=== PATIENT | female | born 1980 | race Caucasian/White ===

== ENCOUNTER 2017-08-30 08:40 | Inpatient (IN) | payer BC, OTHER ==
[2017-08-30 09:03] VITALS: BMI 39.1
--- NOTE | 2017-08-30 09:21 | PDOC ---
Attending Attestation - HPI HPI: 08/30/17 10:27 The patient is a 36 year old female with a significant PMH of melanoma (s/p excision), gastric bypass, and past seizures who presents to the emergency department with right ankle pain s/p syncopal episode earlier this morning. The patient reports brushing her teeth and passing out, and woke up a few seconds later with right ankle pain and deformity. She denies presyncopal lightheadedness or palpitations. She denies numbness, tingling, or weakness. The patient reports a history of LOC and was evaluated here on 02/2016 for a similar episode. Allergies: NKA PCP: None reported. <Javier Chowdhury - Last Filed: 08/30/17 10:27> - Resident Resident Name: Ludwig Danielson - ED Attending Attestation I have performed the following: I have examined & evaluated the patient, The case was reviewed & discussed with the resident, I agree w/resident's findings & plan, Exceptions are as noted - Physicial Exam PE: GENERAL: Awake, alert, and fully oriented. In obvious pain. HEAD: No signs of trauma EYES: PERRLA, EOMI, sclera anicteric, conjunctiva clear ENT: Auricles normal inspection, hearing grossly normal, nares patent, oropharynx clear without exudates. Moist mucosa NECK: Normal ROM, supple, no lymphadenopathy, JVD, or masses LUNGS: Breath sounds equal, clear to auscultation bilaterally. No wheezes, and no crackles HEART: Regular rate and rhythm, normal S1 and S2, no murmurs, rubs or gallops ABDOMEN: Soft, nontender, normoactive bowel sounds. No guarding, no rebound. No masses EXTREMITIES: +Deformity to R ankle. +Distal pulses. Remainder of extremities with normal range of motion, no edema. No clubbing or cyanosis. No cords, erythema, or tenderness NEUROLOGICAL: Cranial nerves II through XII grossly intact. Normal speech. Motor and sensation intact. Unable to ambulate due to ankle injury. SKIN: Warm, Dry, normal turgor, no rashes or lesions noted. - Medical Decision Making Pt with tib/fib fx. Will consult ortho. Will require admission for syncope as well as pain control. <Peyton Ruffin - Last Filed: 09/02/17 12:53>
[2017-08-30] MEDS ORDERED: morphine CARPU-JECT 4 MG/1 ML DISP.SYRIN IVPUSH ONE ×2 (09:25→10:36)
[2017-08-30] MEDS ORDERED: MORPHINE SULFATE 10 MG/1 ML *VIAL ONE ×2 (09:38→10:45)
[2017-08-30 09:44] LABS: BASO % 0.5 % (0-2.0); EOS % 1.8 % (0-4.5); HEMATOCRIT 38.9 % (32.4-45.2); HEMOGLOBIN 12.6 GM/dL (10.7-15.3); LYMPH % 14.7 % (8-40); MCH 26.1 pg (25.7-33.7); MCHC 32.3 g/dl (32.0-36.0); MEAN CELL VOLUME 80.7 fl (80-96); MEAN PLT VOLUME 7.1 fl (7.5-11.1); MONO % 6.4 % (3.8-10.2); NEUT % 76.6 % (42.8-82.8); PLATELET COUNT 324 K/MM3 (134-434); RBC 4.83 M/mm3 (3.60-5.2); RDW 15.4 % (11.6-15.6); WHITE BLOOD COUNT 7.3 K/mm3 (4.0-10.0)
--- NOTE | 2017-08-30 10:06 | PDOC ---
History of Present Illness - General Chief Complaint: Syncope/Near Syncope Stated Complaint: INJURY Time Seen by Provider: 08/30/17 09:08 History Source: Patient Exam Limitations: No Limitations - History of Present Illness Initial Comments: 08/30/17 09:57 The patient is a 36F with a PMH of melanoma (s/p excision), possible seizures, and syncope who presents after a syncopal episode. The patient states that she was feeling her normal self and going about her normal routine this morning when she syncopized while brushing her teeth. This was unwitnessed. She felt disoriented when she woke up, but denies any tongue biting, bladder/bowel incontinence, lightheadedness, CP, SOB, numbness, tingling, or weakness before , during, or after this episode. She says that she woke up and felt pain in her ankle. She currently is only complaining of pain in her ankle. Past History - Past Medical History Allergies/Adverse Reactions: Allergies Allergy/AdvReac Type Severity Reaction Status Date / Time No Known Allergies Allergy Verified 08/30/17 09:03 Home Medications: Ambulatory Orders NK [No Known Home Medication] 08/30/17 Cancer: (melanoma) COPD: No - Surgical History Abdominal Surgery: Yes (sleeve) - Immunization History Immunization Up to Date: Yes - Suicide/Smoking/Psychosocial Hx Smoking History: Never smoked Have you smoked in the past 12 months: No Number of Cigarettes Smoked Daily: 0 If you are a former smoker, when did you quit?: smokes hookah daily Cigars Per Day: 0 Information on smoking cessation initiated: No 'Breaking Loose' booklet given: 02/27/16 Hx Alcohol Use: No Drug/Substance Use Hx: No Substance Use Type: Alcohol Hx Substance Use Treatment: No *Physical Exam - Vital Signs Last Vital Signs Temp Pulse Resp BP Pulse Ox 99.0 F 80 18 98/70 100 08/30/17 08:49 08/30/17 08:49 08/30/17 08:49 08/30/17 08:49 08/30/17 08:49 Procedures - Splinting Splint Location: Right: Ankle Pre-Proc Neuro Vasc Exam: normal Hand-Made Type: orthoglass Splint Type: Yes: Posterior, Short Leg Kana Bandage: 4" Sling: No Complications: No Post splint xray: No ED Treatment Course - LABORATORY CBC & Chemistry Diagram: 08/30/17 09:32 08/30/17 09:32 - RADIOLOGY Radiology Studies Ordered: Category Date Time Status ANKLE & FOOT-RIGHT* [RAD] Stat Radiology 08/30/17 09:07 Ordered - Medications Given in the ED: ED Medications Discontinued Medications Generic Name Dose Route Start Last Admin Trade Name Ariana PRN Reason Stop Dose Admin Morphine Sulfate 4 mg 08/30/17 09:25 08/30/17 09:40 Morphine Injection - IVPUSH 08/30/17 09:26 4 mg ONCE ONE Administration Oxycodone/Acetaminophen 1 combo 08/30/17 09:09 08/30/17 09:10 Percocet 5/325 - PO 08/30/17 09:10 1 combo ONCE ONE Administration Medical Decision Making - Medical Decision Making 08/30/17 12:11 The patient is a 36F with a PMH of melanoma (s/p excision), possible seizures, and syncope, who presents to the ER after a syncopal episode causing a distal tib/fib fx. Hospitalist microblogged and I have endorsed the patient to Brook NICOLE, hospitalist. 08/30/17 14:04 Pt ankle is splinted and requiring dilaudid for comfort. *DC/Admit/Observation/Transfer Diagnosis at time of Disposition: Syncope Qualifiers: Syncope type: unspecified Qualified Code(s): R55 - Syncope and collapse - Discharge Dispostion Disposition: HOME Condition at time of disposition: Stable Admit: Yes - Referrals - Patient Instructions - Post Discharge Activity
[2017-08-30] MEDS ORDERED: SODIUM CHLORIDE 0.9% 1000 ML INFUS.BAG IV ONE (10:13)
[2017-08-30 10:23] LABS: ALBUMIN 3.7 g/dl (3.4-5.0); ANION GAP 9 (8-16); BILIRUBIN,TOTAL 0.2 mg/dL (0.2-1.0); BLOOD UREA NITROGEN 9 mg/dL (7-18); CALCIUM 8.4 mg/dL (8.5-10.1); CHLORIDE 106 mmol/L (98-107); CO2 24 mmol/L (21-32); CREATININE 0.7 mg/dL (0.55-1.02); GLUCOSE,RANDOM 109 mg/dL (74-106); POTASSIUM 4.4 mmol/L (3.5-5.1); SGOT/AST 12 U/L (15-37); SGPT/ALT 21 U/L (12-78); SODIUM 139 mmol/L (136-145); TOT PROT 7.3 g/dl (6.4-8.2)
[2017-08-30 10:26] LABS: ALK PHOS 38 U/L (45-117)
[2017-08-30] MEDS ORDERED: ONDANSETRON 4 MG/2 ML VIAL IVPUSH ONE (10:36)
[2017-08-30] MEDS ORDERED: ONDANSETRON 4 MG/2 ML VIAL ONE (10:45)
--- NOTE | 2017-08-30 11:24 | CON.CARD ---
Consult Consult Specialty:: Cardiology Referred by:: Dr. Ed Oneill Reason for Consultation:: Preop evaluation for ankle fracture - History of Present Illness Chief Complaint: Possible syncope vs seizure leading to ankle fracture History of Present Illness: 36F with PMH melanoma, gastric bypass, , mulitple prior surgeries for melanoma (now CHRIST > 5 years) sustained ankle fx after fall at home. Denies prior CP, SOB, palps. Similar episode 2 years ago for which a complete cardiac evaluation was performed and was unremarkable. She was seen and examined in the ER today; she denies CP, SOB, palps, no edema. 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: 02/03/16 Heme/Onc: Yes: Other (Melanoma) - Past Surgical History Past Surgical History: Yes: Appendectomy, Bariatric Surgery (Multiple prior melanoma surgeries) - Alcohol/Substance Use Hx Alcohol Use: No - Smoking History Smoking history: Never smoked Have you smoked in the past 12 months: No Aproximately how many cigarettes per day: 0 If you are a former smoker, when did you quit?: smokes hookah daily - Social History Usual Living Arrangement: Alone 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 Travel: No Home Medications - Allergies Allergies/Adverse Reactions: Allergies Allergy/AdvReac Type Severity Reaction Status Date / Time No Known Allergies Allergy Verified 08/30/17 09:03 - Home Medications Home Medications: Ambulatory Orders NK [No Known Home Medication] 08/30/17 Home Medications (free text): SENSITIVE TO LYRICA Family Disease History - Family Disease History Family History: Unremarkable (not pertinent to this presentation) Review of Systems - Review of Systems Constitutional: reports: No Symptoms Eyes: reports: No Symptoms HENT: reports: No Symptoms Neck: reports: No Symptoms Cardiovascular: reports: No Symptoms Respiratory: reports: No Symptoms Gastrointestinal: reports: No Symptoms Genitourinary: reports: No Symptoms Breasts: reports: No Symptoms Reported Musculoskeletal: reports: No Symptoms Integumentary: reports: No Symptoms Neurological: reports: No Symptoms Endocrine: reports: No Symptoms Hematology/Lymphatic: reports: No Symptoms Vital Signs: Vital Signs Temperature 99.0 F 08/30/17 08:49 Pulse Rate 80 08/30/17 08:49 Respiratory Rate 18 08/30/17 08:49 Blood Pressure 98/70 08/30/17 08:49 O2 Sat by Pulse Oximetry (%) 100 08/30/17 08:49 Constitutional: Yes: No Distress, Calm Eyes: Yes: Conjunctiva Clear, EOM Intact HENT: Yes: Atraumatic, Normocephalic Neck: Yes: Supple, Trachea Midline Respiratory: Yes: CTA Bilaterally Gastrointestinal: Yes: Soft JVD: No Carotid Bruit: No PMI: Non-Displaced Heart Sounds: Yes: S1, S2 (RRR) Edema: No Peripheral Pulses WNL: Yes Neurological: Yes: Alert, Oriented ...Motor Strength: WNL - Other Data Labs, Other Data: CBC, BMP 08/30/17 09:32 08/30/17 09:32 Troponin, BNP 08/30/17 09:32 Troponin I < 0.02 Troponin, BNP 08/30/17 09:32 Troponin I < 0.02 Ejection Fraction %: LVEF > or = 40 % Imaging - Results EKG: Pending Problem List - Problems (1) Closed right ankle fracture Code(s): S82.891A - OTH FRACTURE OF RIGHT LOWER LEG, INIT FOR CLOS FX (2) History of melanoma Code(s): Z85.820 - PERSONAL HISTORY OF MALIGNANT MELANOMA OF SKIN (3) Seizure Code(s): R56.9 - UNSPECIFIED CONVULSIONS (4) Syncope Code(s): R55 - SYNCOPE AND COLLAPSE Assessment/Plan IMP: Fall: syncope vs seizure Right ankle fracture REC: There are no cardiac contraindications to ortho surgery: she is in NSR, euvolemic with no sig valve disease. LV function is normal. Prior extensive cardiac evaluation for similar presentation 2016 including an extended holter proved unremarkable. A baseline ECG has been requested, but should not delay surgery. Please call if any further questions.
--- NOTE | 2017-08-30 12:13 | HP ---
Admitting History and Physical - Admission Chief Complaint: syncope, s/p fall, s/p ankle fx History of Present Illness: HPI 36 year old female with PMH melanoma multiple prior surgeries for melanoma including R leg skin graft and lymphnode removal (now CHRIST > 5 years, has not had a scan in last 2 years) gastric bypass, , admitted after syncopal episode resulting in right ankle fx after fall at home. Pt states she awoke up in her usual state of health, showered and after shower while brushing teeth became dizzy, held on to sink and next thing she woke up to the sound of water running. She felt pain to her R ankle right away, called her family who called EMS. Pt denies sob, cp, abd pain, n/v, fever, chills, ROY, blurry vision. She denies an aura, palpitations, or feelings of warmth prior to episode. 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 ...LMP: 02/03/16 Heme/Onc: Yes: Other (Melanoma) - Past Surgical History Past Surgical History: Yes: Appendectomy, Bariatric Surgery (Multiple prior melanoma surgeries) - Smoking History Smoking history: Never smoked Have you smoked in the past 12 months: No Aproximately how many cigarettes per day: 0 If you are a former smoker, when did you quit?: smokes hookah daily - Alcohol/Substance Use Hx Alcohol Use: No History of Substance Use: reports: None - Social History Usual Living Arrangement: Yes: With Child ADL: Independent 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[place] 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 Travel: No Home Medications - Allergies Allergies/Adverse Reactions: Allergies Allergy/AdvReac Type Severity Reaction Status Date / Time No Known Allergies Allergy Verified 08/30/17 09:03 - Home Medications Home Medications: Ambulatory Orders NK [No Known Home Medication] 08/30/17 Review of Systems - Review of Systems Constitutional: reports: No Symptoms Eyes: reports: No Symptoms HENT: reports: No Symptoms Neck: reports: No Symptoms Cardiovascular: reports: No Symptoms Respiratory: reports: No Symptoms Gastrointestinal: reports: No Symptoms Genitourinary: reports: No Symptoms Musculoskeletal: reports: No Symptoms Integumentary: reports: No Symptoms Neurological: reports: Change in LOC, Dizziness, Syncope Endocrine: reports: No Symptoms Hematology/Lymphatic: reports: No Symptoms Psychiatric: reports: No Symptoms Physical Examination Vital Signs: Vital Signs Temperature 99.0 F 08/30/17 08:49 Pulse Rate 80 08/30/17 08:49 Respiratory Rate 18 08/30/17 08:49 Blood Pressure 98/70 08/30/17 08:49 O2 Sat by Pulse Oximetry (%) 100 08/30/17 08:49 Constitutional: Yes: Calm Eyes: Yes: Conjunctiva Clear HENT: Yes: Other (dry mm) Cardiovascular: Yes: Regular Rate and Rhythm, S1, S2 Respiratory: Yes: Regular, CTA Bilaterally Gastrointestinal: Yes: Normal Bowel Sounds, Soft Renal/: Yes: WNL Musculoskeletal: Yes: WNL Extremities: Yes: External Rotation (R ankle, + tenderness, + swelling) Edema: No Peripheral Pulses WNL: Yes Integumentary: Yes: Other (vitiligo) Neurological: Yes: Alert, Oriented, Cran Nerves II-XII Intact Labs: CBC, BMP 08/30/17 09:32 08/30/17 09:32 Imaging - Results X-ray: Report Reviewed (R distal tib fib fx) Problem List - Problems (1) Closed right ankle fracture Code(s): S82.891A - OTH FRACTURE OF RIGHT LOWER LEG, INIT FOR CLOS FX (2) History of melanoma Code(s): Z85.820 - PERSONAL HISTORY OF MALIGNANT MELANOMA OF SKIN (3) Syncope Code(s): R55 - SYNCOPE AND COLLAPSE Qualifiers: Syncope type: unspecified Qualified Code(s): R55 - Syncope and collapse (4) Vitiligo Code(s): L80 - VITILIGO Assessment/Plan Assessment: 36 year old female with hx of melanoma, ?seizures admitted s/p syncope resulting in ankle fracture Plan: 1. Distal Tib/fib fracture, R ankle - Place splint - Elevate leg - Pain control - Ortho to see, no surgery today 2. Syncope vs seizure - Admit to tele - Cardiology work up including holter in 2016 proved unremarkable - ECHO per records show nml LV fxn - Obtain EKG - No cardiac contraindications for surgery - Appreciate cardiology - Neurology consulted 3. DVT - Lovenox sq Visit type - Emergency Visit Emergency Visit: Yes Care time: The patient presented to the Emergency Department on the above date and was hospitalized for further evaluation of their emergent condition. - New Patient This patient is new to me today: Yes Date on this admission: 08/30/17 - Critical Care Critical Care patient: No
[2017-08-30] MEDS ORDERED: MORPHINE SULFATE 10 MG/1 ML *VIAL IVPUSH PRN (12:39)
[2017-08-30] MEDS ORDERED: ONDANSETRON 4 MG/2 ML VIAL IVPUSH PRN (12:42)
[2017-08-30] MEDS ORDERED: SODIUM CHLORIDE 1,000 ML IV SCH (12:45)
[2017-08-30] MEDS ORDERED: HYDROmorphone HCL CARPU-JECT 1 MG/1 ML DISP.SYRIN IVPUSH ONE ×2 (13:25→17:45)
[2017-08-30] MEDS ORDERED: HYDROmorphone HCL CARPU-JECT 1 MG/1 ML DISP.SYRIN ONE (13:30)
--- NOTE | 2017-08-30 13:47 | CON.ORTH ---
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: No Home Medications - Allergies Allergies/Adverse Reactions: Allergies Allergy/AdvReac Type Severity Reaction Status Date / Time No Known Allergies Allergy Verified 08/30/17 09:03 - Home Medications Home Medications: Ambulatory Orders NK [No Known Home Medication] 08/30/17 Physical Exam for Ortho Vital Signs: Vital Signs Temperature 99.0 F 08/30/17 08:49 Pulse Rate 80 08/30/17 08:49 Respiratory Rate 18 08/30/17 08:49 Blood Pressure 98/70 08/30/17 08:49 O2 Sat by Pulse Oximetry (%) 100 08/30/17 08:49 Labs: CBC, BMP 08/30/17 09:32 08/30/17 09:32 - Lower Extremity Ankle: Yes: Right, Assymetrical, Deformity, Erythema, Limited ROM, Pain, Swelling, Tenderness, Other (nvi) Imaging - Results X-ray: Report Reviewed, Image Reviewed Assessment/Plan 36 year old female with PMH melanoma multiple prior surgeries for melanoma including R leg skin graft and lymphnode removal (now CHRIST > 5 years, has not had a scan in last 2 years) gastric bypass, , admitted after syncopal episode resulting in right ankle fx after fall at home. Pt states she awoke up in her usual state of health, showered and after shower while brushing teeth became dizzy, held on to sink and next thing she woke up to the sound of water running. She felt pain to her R ankle right away, called her family who called EMS. Pt denies sob, cp, abd pain, n/v, fever, chills, ROY, blurry vision. She denies an aura, palpitations, or feelings of warmth prior to episode. a/p right distal tibia and distal fibula fx- displaced Risks and benefits were d/w pt in detail Will need right ankle ORIF Surgical clearance Strict elevation Surgery tentatively for Saturday afternoon pending clearance NPO after midnight on Saturday d/w Dr. Aguillon
[2017-08-30] MEDS ORDERED: diphenhydrAMINE HCL 25 MG CAPSULE (FP) PO ONE (17:45)
[2017-08-30] MEDS: oxyCODONE HCL 5 MG TABLET PO PRN ×2 (17:48→21:31)
--- NOTE | 2017-08-30 17:48 | CON.NEURO ---
Consult - History of Present Illness History of Present Illness: 36 year old female with PMH melanoma multiple prior surgeries for melanoma including R leg skin graft and lymphnode removal (now CHRIST > 5 years, has not had a scan in last 2 years) gastric bypass, , admitted after syncopal episode resulting in right ankle fx after fall at home. Pt states she awoke up in her usual state of health, showered and after shower while brushing teeth became dizzy, held on to sink and next thing she woke up to the sound of water running. She felt pain to her R ankle right away, called her family who called EMS. Pt denies sob, cp, abd pain, n/v, fever, chills, ROY, blurry vision. She denies an aura, palpitations, or feelings of warmth prior to episode. denies tongue biting, incontinence. No ROY, no focal c/o beyond right foot / ankle pain . No HX of seizures, one drink last night, +menstruation CT HD : EXAM#: TYPE/EXAM: RESULT: [id number] CT/HEAD CT WITH AND W/O CONTRAST Status post syncope. Possible metastasis. History of melanoma CT scan of the brain without and following intravenous contrast Compared to prior CT scan of the head dated 02/27/2016 and prior MRI of the brain dated 02/28/2016 The ventricles and basal cisterns appear unremarkable. No mass lesion, gross acute infarct, intracranial hemorrhage or intraparenchymal edema are present. No gross abnormal intracranial enhancement is identified. There is no shift of the midline structures. The calvarium is intact. Partial opacification of the ethmoid air cells, mainly on the right. Mild deviation of the nasal septum to the right. The mastoid air cells are well aerated IMPRESSION: No significant interval change or acute intracranial pathology is identified. No abnormal intracranial enhancement is seen. 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 ...LMP: 08/30/17 ...: No - Past Surgical History Past Surgical History: Yes: Appendectomy, Bariatric Surgery (Multiple prior melanoma surgeries) - Alcohol/Substance Use Hx Alcohol Use: Yes (socially) History of Substance Use: reports: None - Smoking History Smoking history: Never smoked Have you smoked in the past 12 months: No Aproximately how many cigarettes per day: 0 If you are a former smoker, when did you quit?: smokes hookah daily - Social History Usual Living Arrangement: Alone ADL: Independent 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: No Home Medications - Allergies Allergies/Adverse Reactions: Allergies Allergy/AdvReac Type Severity Reaction Status Date / Time No Known Allergies Allergy Verified 08/30/17 09:03 - Home Medications Home Medications: Ambulatory Orders NK [No Known Home Medication] 08/30/17 Physical Exam-Neuro Vital Signs: Vital Signs Temperature 98.5 F 08/30/17 15:19 Pulse Rate 85 08/30/17 15:19 Respiratory Rate 20 08/30/17 15:19 Blood Pressure 129/81 08/30/17 15:19 O2 Sat by Pulse Oximetry (%) 98 08/30/17 15:19 Constitutional: Yes: Well Nourished, No Distress Labs: CBC, BMP 08/30/17 09:32 08/30/17 09:32 - Neuro Exam Level Of Consciousness: Yes: Alert, Oriented to Person (EOMI, VFF, no facial, motor 5/5 except for limited movements RLE -braced) Imaging - Results Cat Scan: Report Reviewed, Image Reviewed Problem List - Problems (1) Closed right ankle fracture Code(s): S82.891A - OTH FRACTURE OF RIGHT LOWER LEG, INIT FOR CLOS FX (2) History of melanoma Code(s): Z85.820 - PERSONAL HISTORY OF MALIGNANT MELANOMA OF SKIN (3) Syncope Code(s): R55 - SYNCOPE AND COLLAPSE Qualifiers: Syncope type: unspecified Qualified Code(s): R55 - Syncope and collapse Assessment/Plan 36 year old female with PMH melanoma multiple prior surgeries for melanoma including R leg skin graft and lymphnode removal (now CHRIST > 5 years, has not had a scan in last 2 years) gastric bypass, , admitted after syncopal episode resulting in right ankle fx -- likely vasovagal event; no stigmata for seizure or stroke. CT HD (-). back to baseline. menstruating -may have compounded. prior cardiac DURHAM (-). no need for AED/EEG at this time. can do tilt table as outpt when ortho status stable. neuro sign off. thank you Dr Avelar
[2017-08-30] MEDS: ACETAMINOPHEN 325 MG TABLET (FP) PO PRN ×2 (17:49→21:31)
[2017-08-30] MEDS: DOCUSATE SODIUM 100 MG CAPSULE (FP) PO SCH (21:31)
[2017-08-30] MEDS ORDERED: oxyCODONE HCL 5 MG TABLET PO ONE (22:04)
[2017-08-30] MEDS ORDERED: ACETAMINOPHEN 325 MG TABLET (FP) PO ONE (22:10)
[2017-08-31] MEDS: oxyCODONE HCL 5 MG TABLET PO PRN ×5 (02:36→22:04)
[2017-08-31] MEDS: ACETAMINOPHEN 325 MG TABLET (FP) PO PRN ×2 (02:36→11:31)
[2017-08-31] MEDS ORDERED: oxyCODONE HCL 5 MG TABLET PO ONE (05:03)
[2017-08-31] MEDS ORDERED: ACETAMINOPHEN 325 MG TABLET (FP) PO ONE (05:03)
[2017-08-31 07:29] LABS: BASO % 0.4 % (0-2.0); EOS % 3.1 % (0-4.5); HEMOGLOBIN 10.5 GM/dL (10.7-15.3); MCH 26.4 pg (25.7-33.7); MCHC 32.6 g/dl (32.0-36.0); MEAN PLT VOLUME 6.9 fl (7.5-11.1); MONO % 9.3 % (3.8-10.2); NEUT % 65.2 % (42.8-82.8); PLATELET COUNT 234 K/MM3 (134-434); RBC 3.95 M/mm3 (3.60-5.2); RDW 15.1 % (11.6-15.6); WHITE BLOOD COUNT 6.1 K/mm3 (4.0-10.0)
[2017-08-31 08:43] LABS: CHLORIDE 103 mmol/L (98-107); SODIUM 138 mmol/L (136-145)
[2017-08-31 08:53] LABS: ALK PHOS 33 U/L (45-117); ANION GAP 9 (8-16); BILIRUBIN,TOTAL 0.6 mg/dL (0.2-1.0); BLOOD UREA NITROGEN 7 mg/dL (7-18); CALCIUM 8.2 mg/dL (8.5-10.1); CO2 26 mmol/L (21-32); CREATININE 0.6 mg/dL (0.55-1.02); GLUCOSE,RANDOM 101 mg/dL (74-106); MAGNESIUM 1.8 mg/dL (1.8-2.4); PHOSPHOROUS 3.9 mg/dL (2.5-4.9); SGOT/AST 13 U/L (15-37); SGPT/ALT 17 U/L (12-78); TOT PROT 6.2 g/dl (6.4-8.2)
[2017-08-31] MEDS: ENOXAPARIN NA (PORCINE) 40 MG/0.4 ML DISP.SYRIN SQ SCH (09:12)
[2017-08-31] MEDS: DOCUSATE SODIUM 100 MG CAPSULE (FP) PO SCH ×2 (09:12→21:58)
--- NOTE | 2017-08-31 09:21 | PN ---
Physical Exam: SUBJECTIVE: Patient seen and examined at bedside. c/o pain to right ankle. OBJECTIVE: Vital Signs Period Temp Pulse Resp BP Sys/Zeng Pulse Ox Last 24 Hr 98.2 F-98.9 F 76-85 20-20 115-129/75-83 96-99 GENERAL: The patient is awake, alert, and fully oriented, in no acute distress. LUNGS: CTAB HEART: RRR, S1, S2. No m/r/g. ABDOMEN: SNTND. +BS EXTREMITIES: posterior tibial splint in place. NMS intact. NEUROLOGICAL: Cranial nerves II through XII grossly intact. Normal speech, gait not observed. PSYCH: Normal mood, normal affect. Laboratory Results - last 24 hr 08/30/17 08/30/17 08/30/17 09:32 09:32 09:32 WBC 7.3 RBC 4.83 D Hgb 12.6 D Hct 38.9 D MCV 80.7 MCH 26.1 MCHC 32.3 RDW 15.4 D Plt Count 324 D MPV 7.1 L Neutrophils % 76.6 Lymphocytes % 14.7 D Monocytes % 6.4 Eosinophils % 1.8 Basophils % 0.5 Sodium Potassium Chloride Carbon Dioxide Anion Gap BUN Creatinine Creat Clearance w eGFR Random Glucose Lactic Acid Calcium Phosphorus Magnesium Total Bilirubin AST ALT Alkaline Phosphatase Creatine Kinase Troponin I Total Protein Albumin Serum , Qual Negative Blood Type A POSITIVE Antibody Screen Negative 08/30/17 08/30/17 08/31/17 09:32 09:32 06:00 WBC 6.1 RBC 3.95 Hgb 10.5 L D Hct 32.0 L D MCV 81.0 MCH 26.4 MCHC 32.6 RDW 15.1 Plt Count 234 D MPV 6.9 L Neutrophils % 65.2 Lymphocytes % 22.0 D Monocytes % 9.3 Eosinophils % 3.1 Basophils % 0.4 Sodium 139 Potassium 4.4 Chloride 106 Carbon Dioxide 24 Anion Gap 9 BUN 9 Creatinine 0.7 Creat Clearance w eGFR > 60 Random Glucose 109 H Lactic Acid 2.3 H* Calcium 8.4 L Phosphorus Magnesium 2.0 Total Bilirubin 0.2 AST 12 L ALT 21 Alkaline Phosphatase 38 L Creatine Kinase 110 Troponin I < 0.02 Total Protein 7.3 Albumin 3.7 Serum , Qual Blood Type Antibody Screen 08/31/17 06:00 WBC RBC Hgb Hct MCV MCH MCHC RDW Plt Count MPV Neutrophils % Lymphocytes % Monocytes % Eosinophils % Basophils % Sodium 138 Potassium 4.0 Chloride 103 Carbon Dioxide 26 Anion Gap 9 BUN 7 Creatinine 0.6 Creat Clearance w eGFR > 60 Random Glucose 101 Lactic Acid Calcium 8.2 L Phosphorus 3.9 Magnesium 1.8 Total Bilirubin 0.6 D AST 13 L ALT 17 Alkaline Phosphatase 33 L Creatine Kinase Troponin I Total Protein 6.2 L Albumin 3.0 L Serum , Qual Blood Type Antibody Screen Active Medications Generic Name Dose Route Start Last Admin Trade Name Freq PRN Reason Stop Dose Admin Acetaminophen 325 mg 08/30/17 17:39 08/31/17 02:36 Tylenol - PO 325 mg Q4H PRN Administration PAIN LEVEL 1 - 3 Docusate Sodium 100 mg 08/30/17 22:00 08/31/17 09:12 Colace - PO 100 mg BID STEFANIA Administration Enoxaparin Sodium 40 mg 08/31/17 10:00 08/31/17 09:12 Lovenox - SQ 40 mg DAILY STEFANIA Administration Ondansetron HCl 4 mg 08/30/17 12:42 Zofran Injection IVPUSH Q6H PRN NAUSEA Oxycodone HCl 10 mg 08/31/17 08:41 08/31/17 08:52 Roxicodone - PO 10 mg Q4H PRN Administration PAIN LEVEL 4 - 6 ASSESSMENT/PLAN: A: 36 year old female with hx of melanoma, ?seizures admitted s/p syncope resulting in ankle fracture P: Distal right Tib/fib fracture - posterior tibial splint in place - Elevate leg - increase oxycodone to 10mg q4h - Ortho to take to OR 09/02 in afternoon Syncope vs seizure - Likely vasovagal - Cardiology work up including holter in 2016 proved unremarkable - ECHO per records show normal LV function - No cardiac contraindications for surgery - Appreciate cardiology - Neurology consulted - tilt table as outpatient F/E/N - regular diet - replete prn PPX - Lovenox sq- hold para professional for surgery Dispo- OR 09/02 for ORIF Right ankle Visit type - Emergency Visit Emergency Visit: Yes ED Registration Date: 08/30/17 Care time: The patient presented to the Emergency Department on the above date and was hospitalized for further evaluation of their emergent condition. - New Patient This patient is new to me today: Yes Date on this admission: 09/01/17 - Critical Care Critical Care patient: No
--- NOTE | 2017-08-31 09:34 | EKG ---
Test Reason : Blood Pressure : / mmHG Vent. Rate : 079 BPM Atrial Rate : 079 BPM P-R Int : 176 ms QRS Dur : 090 ms QT Int : 374 ms P-R-T Axes : 033 003 018 degrees QTc Int : 428 ms NORMAL SINUS RHYTHM LOW VOLTAGE QRS BORDERLINE ECG WHEN COMPARED WITH ECG OF 26-FEB-2016 23:57, NO SIGNIFICANT CHANGE WAS FOUND Confirmed by YAZAN ZENG MD ([id number]) on 08/31/2017 9:34:02 AM Referred By: Confirmed By:YAZAN ZENG MD
--- NOTE | 2017-08-31 09:39 | PN ---
Progress Note, Physician History of Present Illness: 36F with PMH melanoma, gastric bypass, , mulitple prior surgeries for melanoma (now [facility] > 5 years) sustained ankle fx after fall at home. Denies prior CP, SOB, palps. Similar episode 2 years ago for which a complete cardiac evaluation was performed and was unremarkable. She was seen and examined in the ER today; she denies CP, SOB, palps, no edema. - Current Medication List Current Medications: Active Medications Acetaminophen (Tylenol -) 325 mg PO Q4H PRN PRN Reason: PAIN LEVEL 1 - 3 Last Admin: 08/31/17 02:36 Dose: 325 mg Docusate Sodium (Colace -) 100 mg PO BID [facility] Last Admin: 08/31/17 09:12 Dose: 100 mg Enoxaparin Sodium (Lovenox -) 40 mg SQ DAILY [facility] Last Admin: 08/31/17 09:12 Dose: 40 mg Ondansetron HCl (Zofran Injection) 4 mg IVPUSH Q6H PRN PRN Reason: NAUSEA Oxycodone HCl (Roxicodone -) 10 mg PO Q4H PRN PRN Reason: PAIN LEVEL 4 - 6 Last Admin: 08/31/17 08:52 Dose: 10 mg - Objective Vital Signs: Vital Signs Temperature 98.2 F 08/31/17 06:00 Pulse Rate 76 08/31/17 06:00 Respiratory Rate 20 08/31/17 06:00 Blood Pressure 124/76 08/31/17 06:00 O2 Sat by Pulse Oximetry (%) 96 08/30/17 21:15 Eyes: Yes: WNL, Conjunctiva Clear, EOM Intact HENT: Yes: WNL, Atraumatic, Normocephalic Neck: Yes: WNL, Supple, Trachea Midline Cardiovascular: Yes: WNL, Regular Rate and Rhythm Respiratory: Yes: WNL, Regular, CTA Bilaterally Gastrointestinal: Yes: WNL, Normal Bowel Sounds Genitourinary: Yes: WNL Musculoskeletal: Yes: WNL Extremities: Yes: WNL Edema: No Integumentary: Yes: WNL Neurological: Yes: WNL, Alert, Oriented ...Motor Strength: WNL Psychiatric: Yes: WNL Labs: CBC, BMP 08/31/17 06:00 08/31/17 06:00 Assessment/Plan Problems (1) Closed right ankle fracture Code(s): S82.891A - OTH FRACTURE OF RIGHT LOWER LEG, INIT FOR CLOS FX (2) History of melanoma Code(s): Z85.820 - PERSONAL HISTORY OF MALIGNANT MELANOMA OF SKIN (3) Seizure Code(s): R56.9 - UNSPECIFIED CONVULSIONS (4) Syncope Code(s): R55 - SYNCOPE AND COLLAPSE Assessment/Plan IMP: Fall: syncope vs seizure Right ankle fracture REC: There are no cardiac contraindications to ortho surgery: she is in NSR, euvolemic with no sig valve disease. LV function is normal. Prior extensive cardiac evaluation for similar presentation 2015 including an extended holter proved unremarkable. ORIF 09-02-2017
--- NOTE | 2017-08-31 13:48 | PN ---
Progress Note (short form) - Note Progress Note: Pt seen and examined. In a posterior splint. I encouraged her to keep it better elevated. RLE grossly NVI. Plan Surgery saturday, right tibia and fibula ORIF by Dr Yumi NAIK after midnight saturday Medical clearance
[2017-08-31] MEDS: SENNOSIDES 8.6MG TABLET (FP) PO PRN (22:00)
[2017-09-01] MEDS: ACETAMINOPHEN 325 MG TABLET (FP) PO PRN ×2 (01:24→22:59)
[2017-09-01] MEDS: oxyCODONE HCL 5 MG TABLET PO PRN ×5 (02:03→22:58)
[2017-09-01 07:59] LABS: BASO % 0.5 % (0-2.0); EOS % 3.1 % (0-4.5); HEMATOCRIT 31.2 % (32.4-45.2); HEMOGLOBIN 10.3 GM/dL (10.7-15.3); LYMPH % 33.8 % (8-40); MCH 26.3 pg (25.7-33.7); MCHC 33.1 g/dl (32.0-36.0); MEAN CELL VOLUME 79.5 fl (80-96); MEAN PLT VOLUME 7.2 fl (7.5-11.1); MONO % 8.5 % (3.8-10.2); NEUT % 54.1 % (42.8-82.8); PLATELET COUNT 244 K/MM3 (134-434); RBC 3.93 M/mm3 (3.60-5.2); WHITE BLOOD COUNT 5.3 K/mm3 (4.0-10.0)
[2017-09-01 08:05] LABS: INR 1.06 (0.82-1.09)
[2017-09-01 08:06] LABS: CHLORIDE 103 mmol/L (98-107); POTASSIUM 3.9 mmol/L (3.5-5.1); SODIUM 139 mmol/L (136-145)
[2017-09-01 08:13] LABS: ALBUMIN 2.8 g/dl (3.4-5.0); ALK PHOS 31 U/L (45-117); ANION GAP 6 (8-16); BILIRUBIN,TOTAL 0.6 mg/dL (0.2-1.0); BLOOD UREA NITROGEN 6 mg/dL (7-18); CALCIUM 8.2 mg/dL (8.5-10.1); CO2 30 mmol/L (21-32); CREATININE 0.5 mg/dL (0.55-1.02); GLUCOSE,RANDOM 95 mg/dL (74-106); SGOT/AST 12 U/L (15-37); SGPT/ALT 15 U/L (12-78); TOT PROT 6.1 g/dl (6.4-8.2)
--- NOTE | 2017-09-01 08:30 | PN ---
Physical Exam: SUBJECTIVE: Patient seen and examined at bedside. Patient reports adequate pain control. OBJECTIVE: Vital Signs Period Temp Pulse Resp BP Sys/Zeng Pulse Ox Last 24 Hr 97.8 F-99.1 F 71-90 18-20 110-137/64-81 96-96 GENERAL: The patient is awake, alert, and fully oriented, in no acute distress. LUNGS: CTAB HEART: RRR, S1, S2. No m/r/g. ABDOMEN: SNTND. +BS EXTREMITIES: posterior tibial splint in place. NMS intact. NEUROLOGICAL: Cranial nerves II through XII grossly intact. Normal speech, gait not observed. PSYCH: Normal mood, normal affect. Laboratory Results - last 24 hr 08/31/17 08/31/17 09/01/17 06:00 09:45 06:00 WBC 5.3 RBC 3.93 Hgb 10.3 L Hct 31.2 L MCV 79.5 L MCH 26.3 MCHC 33.1 RDW 15.0 Plt Count 244 MPV 7.2 L Neutrophils % 54.1 Lymphocytes % 33.8 D Monocytes % 8.5 Eosinophils % 3.1 Basophils % 0.5 PT with INR INR Sodium 138 Potassium 4.0 Chloride 103 Carbon Dioxide 26 Anion Gap 9 BUN 7 Creatinine 0.6 Creat Clearance w eGFR > 60 Random Glucose 101 Lactic Acid 1.1 Calcium 8.2 L Phosphorus 3.9 Magnesium 1.8 Total Bilirubin 0.6 D AST 13 L ALT 17 Alkaline Phosphatase 33 L Total Protein 6.2 L Albumin 3.0 L 09/01/17 09/01/17 06:00 06:00 WBC RBC Hgb Hct MCV MCH MCHC RDW Plt Count MPV Neutrophils % Lymphocytes % Monocytes % Eosinophils % Basophils % PT with INR 12.00 H INR 1.06 Sodium 139 Potassium 3.9 Chloride 103 Carbon Dioxide 30 Anion Gap 6 L BUN 6 L Creatinine 0.5 L Creat Clearance w eGFR > 60 Random Glucose 95 Lactic Acid Calcium 8.2 L Phosphorus Magnesium Total Bilirubin 0.6 AST 12 L ALT 15 Alkaline Phosphatase 31 L Total Protein 6.1 L Albumin 2.8 L Active Medications Generic Name Dose Route Start Last Admin Trade Name Freq PRN Reason Stop Dose Admin Acetaminophen 325 mg 08/30/17 17:39 09/01/17 01:24 Tylenol - PO 325 mg Q4H PRN Administration PAIN LEVEL 1 - 3 Docusate Sodium 100 mg 08/30/17 22:00 08/31/17 21:58 Colace - PO 100 mg BID STEFANIA Administration Enoxaparin Sodium 40 mg 08/31/17 10:00 08/31/17 09:12 Lovenox - SQ 40 mg DAILY STEFANIA Administration Ondansetron HCl 4 mg 08/30/17 12:42 Zofran Injection IVPUSH Q6H PRN NAUSEA Oxycodone HCl 10 mg 08/31/17 08:41 09/01/17 06:08 Roxicodone - PO 10 mg Q4H PRN Administration PAIN LEVEL 4 - 6 Senna 2 tab 08/31/17 22:00 08/31/17 22:00 Senna - PO 2 tab HS PRN Administration CONSTIPATION ASSESSMENT/PLAN: A: 36 year old female with hx of melanoma, ?seizures admitted s/p syncope resulting in ankle fracture P: Distal right Tib/fib fracture - posterior tibial splint in place - Elevate leg - continue oxycodone at 10mg q4h - for ORIF 09/02 - NPO after MN - Medicaly cleared for surgery Syncope vs seizure - Likely vasovagal - Cardiology work up including holter in 2016 proved unremarkable - ECHO per records show normal LV function - No cardiac contraindications for surgery - Appreciate cardiology - Neurology consulted - tilt table as outpatient F/E/N - regular diet - replete prn - NPO after MN PPX - Lovenox sq- hold funeral pre need consultant for surgery Dispo- OR 09/02 for ORIF Right ankle Visit type - Emergency Visit Emergency Visit: Yes ED Registration Date: 08/30/17 Care time: The patient presented to the Emergency Department on the above date and was hospitalized for further evaluation of their emergent condition. - New Patient This patient is new to me today: Yes Date on this admission: 09/01/17 - Critical Care Critical Care patient: No
[2017-09-01] MEDS: SENNOSIDES 8.6MG TABLET (FP) PO PRN (09:18)
[2017-09-01] MEDS: ENOXAPARIN NA (PORCINE) 40 MG/0.4 ML DISP.SYRIN SQ SCH (09:18)
--- NOTE | 2017-09-01 09:24 | PN ---
Progress Note, Physician History of Present Illness: 36F with PMH melanoma, gastric bypass, , mulitple prior surgeries for melanoma (now [facility] > 5 years) sustained ankle fx after fall at home. Denies prior CP, SOB, palps. Similar episode 2 years ago for which a complete cardiac evaluation was performed and was unremarkable. She was seen and examined in the ER today; she denies CP, SOB, palps, no edema. - Current Medication List Current Medications: Active Medications Acetaminophen (Tylenol -) 325 mg PO Q4H PRN PRN Reason: PAIN LEVEL 1 - 3 Last Admin: 09/01/17 01:24 Dose: 325 mg Docusate Sodium (Colace -) 100 mg PO BID [facility] Last Admin: 08/31/17 21:58 Dose: 100 mg Enoxaparin Sodium (Lovenox -) 40 mg SQ DAILY [facility] Last Admin: 09/01/17 09:18 Dose: 40 mg Ondansetron HCl (Zofran Injection) 4 mg IVPUSH Q6H PRN PRN Reason: NAUSEA Oxycodone HCl (Roxicodone -) 10 mg PO Q4H PRN PRN Reason: PAIN LEVEL 4 - 6 Last Admin: 09/01/17 06:08 Dose: 10 mg Senna (Senna -) 2 tab PO HS PRN PRN Reason: CONSTIPATION Last Admin: 09/01/17 09:18 Dose: 2 tab - Objective Vital Signs: Vital Signs Temperature 97.8 F 09/01/17 08:27 Pulse Rate 76 09/01/17 08:27 Respiratory Rate 20 09/01/17 08:27 Blood Pressure 127/81 09/01/17 08:27 O2 Sat by Pulse Oximetry (%) 96 08/31/17 20:49 Eyes: Yes: WNL, Conjunctiva Clear, EOM Intact HENT: Yes: WNL, Atraumatic, Normocephalic Neck: Yes: WNL, Supple, Trachea Midline Cardiovascular: Yes: WNL, Regular Rate and Rhythm Respiratory: Yes: WNL, Regular, CTA Bilaterally Gastrointestinal: Yes: WNL, Normal Bowel Sounds Genitourinary: Yes: WNL Musculoskeletal: Yes: WNL Extremities: Yes: WNL Edema: No Integumentary: Yes: WNL Neurological: Yes: WNL, Alert, Oriented ...Motor Strength: WNL Psychiatric: Yes: WNL Labs: CBC, BMP 09/01/17 06:00 09/01/17 06:00 INR, PTT INR 1.06 (0.82-1.09) 09/01/17 06:00 Assessment/Plan Problems (1) Closed right ankle fracture Code(s): S82.891A - OTH FRACTURE OF RIGHT LOWER LEG, INIT FOR CLOS FX (2) History of melanoma Code(s): Z85.820 - PERSONAL HISTORY OF MALIGNANT MELANOMA OF SKIN (3) Seizure Code(s): R56.9 - UNSPECIFIED CONVULSIONS (4) Syncope Code(s): R55 - SYNCOPE AND COLLAPSE Assessment/Plan IMP: Fall: syncope vs seizure Right ankle fracture REC: There are no cardiac contraindications to ortho surgery: she is in NSR, euvolemic with no sig valve disease. LV function is normal. Prior extensive cardiac evaluation for similar presentation 2015 including an extended holter proved unremarkable. ORIF 09-02-2017
[2017-09-01] MEDS: DOCUSATE SODIUM 100 MG CAPSULE (FP) PO SCH ×2 (10:01→21:27)
[2017-09-01 10:43] LABS: URINE APPEARANCE CLEAR; URINE BILIRUBIN NEGATIVE (NEGATIVE); URINE BLOOD NEGATIVE (NEGATIVE); URINE COLOR YELLOW; URINE GLUCOSE (UA) NEGATIVE (NEGATIVE); URINE KETONE NEGATIVE (NEGATIVE); URINE LEUK ESTERASE TRACE (NEGATIVE); URINE NITRITE NEGATIVE (NEGATIVE); URINE PROTEIN NEGATIVE (NEGATIVE); URINE UROBILINOGEN 4.0 E.U/dl mg/dL (0.2-1.0)
[2017-09-01 10:47] LABS: EPI CELLS RARE /HPF (FEW); URINE MUCUS RARE
[2017-09-02] MEDS: oxyCODONE HCL 5 MG TABLET PO PRN ×3 (04:59→22:49)
[2017-09-02] MEDS: ACETAMINOPHEN 325 MG TABLET (FP) PO PRN (04:59)
--- NOTE | 2017-09-02 08:50 | PN ---
Progress Note (short form) - Note Progress Note: Ortho Pt seen and examined- OR today for ORIF splint intact, decr swelling, nvi a/p OR today npo d/w Dr. Eason
[2017-09-02] MEDS: DOCUSATE SODIUM 100 MG CAPSULE (FP) PO SCH ×2 (09:14→21:09)
--- NOTE | 2017-09-02 11:45 | PN ---
Progress Note, Physician History of Present Illness: seen and examined today in [facility]. no new complaints. no overnight events. - Current Medication List Current Medications: Active Medications Acetaminophen (Tylenol -) 325 mg PO Q4H PRN PRN Reason: PAIN LEVEL 1 - 3 Last Admin: 09/02/17 04:59 Dose: 325 mg Docusate Sodium (Colace -) 100 mg PO BID [facility] Last Admin: 09/02/17 09:14 Dose: Not Given Enoxaparin Sodium (Lovenox -) 40 mg SQ DAILY [facility] Last Admin: 09/01/17 09:18 Dose: 40 mg Ondansetron HCl (Zofran Injection) 4 mg IVPUSH Q6H PRN PRN Reason: NAUSEA Oxycodone HCl (Roxicodone -) 10 mg PO Q4H PRN PRN Reason: PAIN LEVEL 4 - 6 Last Admin: 09/02/17 11:07 Dose: 10 mg Senna (Senna -) 2 tab PO HS PRN PRN Reason: CONSTIPATION Last Admin: 09/01/17 09:18 Dose: 2 tab - Objective Vital Signs: Vital Signs Temperature 98.3 F 09/02/17 09:16 Pulse Rate 72 09/02/17 09:16 Respiratory Rate 18 09/02/17 09:16 Blood Pressure 135/81 09/02/17 09:16 O2 Sat by Pulse Oximetry (%) 98 09/02/17 09:00 Constitutional: Yes: Well Nourished, No Distress, Calm Eyes: Yes: WNL, Conjunctiva Clear, EOM Intact, PERRL HENT: Yes: Atraumatic, Normocephalic Neck: Yes: Supple, Trachea Midline Cardiovascular: Yes: Regular Rate and Rhythm, S1, S2. No: Bradycardia, Tachycardia, Pulse Irregular, Bruit, JVD, Gallop, Murmur, Rub, S3, S4, Varicosities Respiratory: Yes: Regular, CTA Bilaterally. No: Rales, Rhonchi, Wheezes Gastrointestinal: Yes: Normal Bowel Sounds, Soft. No: Distention, Tenderness Extremities: Yes: Other (R leg in splint) Edema: No Peripheral Pulses WNL: Yes Peripheral Pulses: Left Doralis Pedis: 2+, Right Dorsalis Pedis: 2+ Integumentary: Yes: WNL Neurological: Yes: Alert, Oriented, Cran Nerves II-XII Intact Psychiatric: Yes: Alert, Oriented Labs: CBC, BMP 09/01/17 06:00 09/01/17 06:00 INR, PTT INR 1.06 (0.82-1.09) 09/01/17 06:00 - ....Imaging Chest X-ray: Report Reviewed, Image Reviewed EKG: Report Reviewed, Image Reviewed Other: Report Reviewed, Image Reviewed Assessment/Plan IMP: Fall: syncope with resultant Right ankle fracture REC: No cardiac contraindications to the planned procedure. Neurology consult appreciated, do not suspect seizures More likely vasovagal event Prior cardiac work up for syncope unrevealing for cardiac source of syncope As outpatient will plan for likely tilt table test and possible consideration for loop recorder implant for longer term monitoring
[2017-09-02] MEDS ORDERED: ceFAZolin SODIUM 1 GM VIAL ONE (13:29)
[2017-09-02] MEDS ORDERED: PROPOFOL 20 ML ONE ×2 (13:29→13:30)
[2017-09-02] MEDS ORDERED: ROPIVACAINE HCL 0.5% 30ML VIAL ONE (14:15)
[2017-09-02] MEDS ORDERED: DEXAMETHASONE SOD PHOSPHATE/PF 10 MG/ML SDV ONE (14:15)
[2017-09-02] MEDS ORDERED: MIDAZOLAM HCL 2 MG/2 ML SINGLE DOSE VIAL ONE ×2 (14:16)
[2017-09-02] MEDS ORDERED: ceFAZolin SODIUM 1 GM VIAL IVPB ONE ×2 (15:30)
[2017-09-02] MEDS ORDERED: DEXAMETHASONE SOD PHOSPHATE 4 MG/1 ML VIAL ONE (15:43)
--- NOTE | 2017-09-02 17:02 | OP ---
Operative Note - Note: Operative Date: 09/02/17 ([facility]) Pre-Operative Diagnosis: right ankle fx Operation: right ankle orif Post-Operative Diagnosis: Same as Pre-op Surgeon: Montez Eason Accreditation Specialist: Jace Stoddard Anesthesiologist/PAPERBOARD MACHINE OPERATOR: Adela Fajardo Anesthesia: General, Local Estimated Blood Loss (mls): 50 Operative Report Dictated: Yes
[2017-09-02] MEDS ORDERED: ACETAMINOPHEN 1000 MG/100 ML VIAL (NON FORMULARY) IVPB ONE ×2 (17:20→17:27)
[2017-09-02] MEDS ORDERED: ONDANSETRON 4 MG/2 ML VIAL IVPUSH PRN (17:40)
[2017-09-02] MEDS ORDERED: SENNOSIDES 8.6MG TABLET (FP) PO PRN (17:40)
--- NOTE | 2017-09-02 20:01 | PN ---
Physical Exam: SUBJECTIVE: Patient seen and examined. States pain is well-managed. OBJECTIVE: Vital Signs Period Temp Pulse Resp BP Sys/Zeng Pulse Ox Last 24 Hr 97.8 F-98.8 F 63-88 16-20 108-146/72-94 96-100 GENERAL: The patient is awake, alert, and fully oriented, in no acute distress. LUNGS: Breath sounds equal, clear to auscultation bilaterally, no wheezes, no crackles, no accessory muscle use. HEART: Regular rate and rhythm, S1, S2 without murmur, rub or gallop. ABDOMEN: Soft, nontender, nondistended, normoactive bowel sounds, no guarding, no rebound UPPER EXTREMITIES: 2+ pulses, warm, well-perfused, no edema. RIGHT LOWER EXTREMITY: In cast from toes to knee; exposed tips of toes warm, well-perfused, +sensory/+motor NEUROLOGICAL: Cranial nerves II through XII grossly intact. Normal speech, gait not observed. Active Medications Generic Name Dose Route Start Last Admin Trade Name Freq PRN Reason Stop Dose Admin Acetaminophen 325 mg 09/02/17 17:40 Tylenol - PO Q4H PRN PAIN LEVEL 1 - 3 Docusate Sodium 100 mg 09/02/17 22:00 Colace - PO BID STEFANIA Fentanyl 50 mcg 09/02/17 17:06 Sublimaze Injection - IVPUSH [id number] PRN PAIN-PACU ORDER X 4 DOSES ONLY Lactated Ringer's 1,000 mls @ 75 mls/hr 09/02/17 17:15 Lactated Ringers Solution IV ASDIR STEFANIA Cefazolin Sodium/Dextrose 2 gm in 50 mls @ 100 mls/hr 09/02/17 23:00 Ancef 2 Gm Premixed Ivpb - IVPB 09/03/17 22:59 Q8H STEFANIA Ondansetron HCl 4 mg 09/02/17 17:40 Zofran Injection IVPUSH Q6H PRN NAUSEA Oxycodone HCl 5 mg 09/02/17 17:20 Roxicodone - PO Q3H PRN PAIN LEVEL 1-5 Oxycodone HCl 10 mg 09/02/17 17:20 Roxicodone - PO Q3H PRN PAIN LEVEL 6-10 Senna 2 tab 09/02/17 17:40 Senna - PO HS PRN CONSTIPATION ASSESSMENT/PLAN 36 year-old female with a PMH significant for melanoma and syncope. Admitted s/ p syncopal episode resulting in right ankle fracture. Underwent ORIF today. Right ankle fracture s/p ORIF --08/30 xray: nondisplaced spiral fracture of distal metaphysis of the tibia; mildly displaced comminuted fracture of distal metaphysis of fibula --09/02: open reduction and internal fixation of right distal tibia-fibula fracture with Dr. Eason --perioperative antibiotics --pain management --IV fluids Syncope --recurrent episodes over past several years --has had extensive workup with cardiology, neurology with no definitive diagnosis; will continue to be followed as outpatient Melanoma --no active issues --is followed by Dr. Aby Malcolm at [facility] Dispo: lives in a 2-story walkup with 11 year-old son; with history of recurrent syncope, unsafe to discharge to home; will need short-term rehab. Full code. Visit type - Emergency Visit Emergency Visit: Yes ED Registration Date: 08/30/17 Care time: The patient presented to the Emergency Department on the above date and was hospitalized for further evaluation of their emergent condition. - New Patient This patient is new to me today: Yes Date on this admission: 09/03/17 - Critical Care Critical Care patient: No
[2017-09-02] MEDS: LACTATED RINGERS SOLUTION 1,000 ML IV SCH (20:56)
--- NOTE | 2017-09-02 21:34 | OP ---
DATE OF OPERATION: 09/02/2017 PREOPERATIVE DIAGNOSIS: Right distal tibia-fibula fracture. POSTOPERATIVE DIAGNOSIS: Right distal tibia-fibula fracture. PROCEDURE: Open reduction and internal fixation of right distal tibia-fibula fracture. SURGICAL ATTENDING: Montez Eason MD MAKING MACHINE CATCHER: ANDER Nicholas ANESTHESIA: Regional and LMA. CLOSURE: Medial and lateral Jose periarticular plates with the appropriate screws, 4-0 Vicryl subcutaneous, rashard skin. ESTIMATED BLOOD LOSS: Approximately 100 mL. COMPLICATIONS: None. CONDITION: To recovery in stable condition. DESCRIPTION OF OPERATIVE PROCEDURE: Patient taken to the operating room on September 02, 2017. Regional anesthesia as well as LMA was administered by the anesthesiologist. IV Kefzol administered prophylactically prior to the case. The right lower extremity was prepped and draped in the usual sterile fashion. First, our attention was directed to the lateral side. A 10- to 12-cm longitudinal incision over the distal fibula was incised. Hemostasis achieved using Bovie cautery. Sharp dissection was carried down to the level of the fracture. Curettes and irrigation were used to clean up the fracture. There was marked comminution at the level of the fracture. An appropriate-sized plate as directed by fluoroscopy was pinned with 2 pins distally in the appropriate position over the fibula. Traction was then used to reduce the fracture. It was then clamped to the bone proximally to bridge the comminution of the fracture. Fluoroscopy in AP, mortise and lateral views revealed excellent length and reduction of the fracture. One proximal and 1 distal non-locking screw were placed first to cinch the plate to the bone. Then, multiple proximal and distal locking screws were placed, achieving excellent rigidity of the fracture. The wires were then removed. Next, our attention was directed to the tibia. A small, 3- to 4-cm longitudinal incision over the distal medial was incised. Hemostasis achieved using Bovie cautery. Sharp dissection was carried down to the level of the fracture. Periosteal elevator was used to push the periosteum all the way up proximally above the fracture. A distal medial periarticular tibial plate from [place] was fed up the incision along the crest of the tibia. A small, 2- to 3-cm longitudinal incision over the proximal aspect of the plate was incised down to the level of the bone and the plate. With reduction being maintained, wires were placed both proximally and distally, locking the plate in place. Fluoroscopy revealed excellent reduction of the fracture with excellent placement of the plate. Two distal screws were placed in non-locking fashion, one parallel to the ankle joint and then 1 "homerun screw" from distal medial , angled proximally, were used to cinch the plate to the bone and achieve excellent fixation. Three proximal locking screws were used to fixate the plate proximally to the bone. Two more distal locking screws were then applied distally. One of the more-proximal non-locking screws was removed, and a locking screw was applied. Excellent position of the plates and screws both proximally and distally was confirmed in the AP, mortise, and lateral views by using the image intensifier with an intact mortise and excellent position of the fracture and reduction of the fracture. All incisions were irrigated with copious amounts of irrigation. The subcutaneous was closed with 2-0 Vicryl and rashard for the skin. A sterile pressure dressing followed by a U splint was applied. Patient awakened from anesthesia and transferred to Recovery in stable condition. No complications. Estimated blood loss was less than 100 mL. Clara [id number]
[2017-09-02] MEDS: CEFAZOLIN 2 GM/D5W 2 GM/50 ML ML IVPB SCH (22:42)
[2017-09-02] MEDS ORDERED: CEFAZOLIN 2 GM/D5W 2 GM/50 ML ML IVPB SCH (23:00)
[2017-09-03] MEDS: oxyCODONE HCL 5 MG TABLET PO PRN ×6 (03:46→21:12)
[2017-09-03] MEDS: LACTATED RINGERS SOLUTION 1,000 ML IV SCH (03:48)
[2017-09-03] MEDS: CEFAZOLIN 2 GM/D5W 2 GM/50 ML ML IVPB SCH ×2 (06:10→14:41)
[2017-09-03] MEDS ORDERED: PT OWN MED DRAWER 7, Y5N ONE (07:12)
--- NOTE | 2017-09-03 08:52 | PN ---
Progress Note (short form) - Note Progress Note: Anesthesiology post op note S/P ORIF tibia and distal femur under general anestheisa and peripheral nerve blocks. Patient did well overnight, no nausea vomiting or other adverse anesthetic effects Pain controlled with nerve blocks and analgesics. Dept of anesthesiology will sign off care at this time
--- NOTE | 2017-09-03 09:17 | PN ---
Progress Note, Physician Chief Complaint: tolerated surgery well No CP, dizziness or SOB - Current Medication List Current Medications: Active Medications Acetaminophen (Tylenol -) 325 mg PO Q4H PRN PRN Reason: PAIN LEVEL 1 - 3 Docusate Sodium (Colace -) 100 mg PO BID [facility] Last Admin: 09/02/17 21:09 Dose: Not Given Fentanyl (Sublimaze Injection -) 50 mcg IVPUSH [id number] PRN PRN Reason: PAIN-PACU ORDER X 4 DOSES ONLY Lactated Ringer's (Lactated Ringers Solution) 1,000 mls @ 75 mls/hr IV ASDIR [facility] Last Admin: 09/03/17 03:48 Dose: 75 mls/hr Cefazolin Sodium/Dextrose (Ancef 2 Gm Premixed Ivpb -) 2 gm in 50 mls @ 100 mls /hr IVPB Q8H [facility] Stop: 09/03/17 22:59 Last Admin: 09/03/17 06:10 Dose: 100 mls/hr Ondansetron HCl (Zofran Injection) 4 mg IVPUSH Q6H PRN PRN Reason: NAUSEA Oxycodone HCl (Roxicodone -) 5 mg PO Q3H PRN PRN Reason: PAIN LEVEL 1-5 Last Admin: 09/02/17 22:49 Dose: 5 mg Oxycodone HCl (Roxicodone -) 10 mg PO Q3H PRN PRN Reason: PAIN LEVEL 6-10 Last Admin: 09/03/17 06:46 Dose: 10 mg Senna (Senna -) 2 tab PO HS PRN PRN Reason: CONSTIPATION - Objective Vital Signs: Vital Signs Temperature 98.1 F 09/03/17 05:30 Pulse Rate 76 09/03/17 05:30 Respiratory Rate 18 09/03/17 05:30 Blood Pressure 91/67 09/03/17 05:30 O2 Sat by Pulse Oximetry (%) 97 09/02/17 21:00 Constitutional: Yes: No Distress Eyes: Yes: Conjunctiva Clear Cardiovascular: Yes: Regular Rate and Rhythm Respiratory: Yes: CTA Bilaterally Gastrointestinal: Yes: Soft, Abdomen, Obese Edema: No Neurological: Yes: Alert, Oriented Labs: CBC, BMP 09/01/17 06:00 09/01/17 06:00 INR, PTT INR 1.06 (0.82-1.09) 09/01/17 06:00 Problem List - Problems (1) Closed right ankle fracture Code(s): S82.891A - OTH FRACTURE OF RIGHT LOWER LEG, INIT FOR CLOS FX (2) History of melanoma Code(s): Z85.820 - PERSONAL HISTORY OF MALIGNANT MELANOMA OF SKIN (3) Seizure Code(s): R56.9 - UNSPECIFIED CONVULSIONS (4) Syncope Code(s): R55 - SYNCOPE AND COLLAPSE Qualifiers: Syncope type: unspecified Qualified Code(s): R55 - Syncope and collapse Assessment/Plan Assessment/Plan IMP: Fall: syncope with resultant Right ankle fracture s/p ORIF REC: No cardiac contraindications to the planned procedure. Neurology consult appreciated, do not suspect seizures More likely vasovagal event Prior cardiac work up for syncope unrevealing for cardiac source of syncope As outpatient will plan for likely tilt table test and possible consideration for loop recorder implant for longer term monitoring
[2017-09-03] MEDS: DOCUSATE SODIUM 100 MG CAPSULE (FP) PO SCH ×2 (09:26→21:12)
--- NOTE | 2017-09-03 10:21 | PN ---
Physical Exam: SUBJECTIVE: Patient seen and examined. Walked a few feet with PT today, unsteady. Still non-weight bearing. Has difficulty using walker. OBJECTIVE: Vital Signs Period Temp Pulse Resp BP Sys/Zeng Pulse Ox Last 24 Hr 97.6 F-98.8 F 68-94 16-20 91-135/65-94 96-100 GENERAL: The patient is awake, alert, and fully oriented, in no acute distress. LUNGS: Breath sounds equal, clear to auscultation bilaterally, no wheezes, no crackles, no accessory muscle use. HEART: Regular rate and rhythm, S1, S2 without murmur, rub or gallop. ABDOMEN: Soft, nontender, nondistended, normoactive bowel sounds, no guarding, no rebound UPPER EXTREMITIES: 2+ pulses, warm, well-perfused, no edema. RIGHT LOWER EXTREMITY: In cast from toes to knee; exposed tips of toes warm, well-perfused, +sensory/+motor NEUROLOGICAL: Cranial nerves II through XII grossly intact. Normal speech, gait not observed. Current Medications Generic Name Dose Route Start Last Admin Trade Name Freq PRN Reason Stop Dose Admin Acetaminophen 325 mg 09/02/17 17:40 Tylenol - PO Q4H PRN PAIN LEVEL 1 - 3 Docusate Sodium 100 mg 09/02/17 22:00 09/03/17 09:26 Colace - PO 100 mg BID STEFANIA Administration Cefazolin Sodium/Dextrose 2 gm in 50 mls @ 100 mls/hr 09/02/17 23:00 06:10 Ancef 2 Gm Premixed Ivpb - IVPB 09/03/17 22:59 100 mls/hr Q8H STEFANIA Administration Oxycodone HCl 5 mg 09/02/17 17:20 09/02/17 22:49 Roxicodone - PO 5 mg Q3H PRN Administration PAIN LEVEL 1-5 Oxycodone HCl 10 mg 09/02/17 17:20 09/03/17 12:31 Roxicodone - PO 10 mg Q3H PRN Administration PAIN LEVEL 6-10 Polyethylene Glycol 17 gm 09/03/17 13:45 Miralax (For Daily Use) - PO BID [facility] ASSESSMENT/PLAN 36 year-old female with a PMH significant for melanoma and syncope. Admitted s/ p syncopal episode resulting in right ankle fracture. Underwent ORIF today. Right ankle fracture s/p ORIF --08/30 xray: nondisplaced spiral fracture of distal metaphysis of the tibia; mildly displaced comminuted fracture of distal metaphysis of fibula --09/02: open reduction and internal fixation of right distal tibia-fibula fracture with Dr. Eason --perioperative antibiotics --pain well-managed with PO meds Syncope --recurrent episodes over past several years --has had extensive workup with cardiology, neurology with no definitive diagnosis; will continue to be followed as outpatient Melanoma --no active issues --is followed by Dr. Aby Malcolm at [facility] Dispo: lives in a 2-story walkup with 11 year-old son; with history of recurrent syncope, unsafe to discharge to home; presently non weight-bearing; will need short-term rehab. Full code. Visit type - Emergency Visit Emergency Visit: Yes ED Registration Date: 08/30/17 Care time: The patient presented to the Emergency Department on the above date and was hospitalized for further evaluation of their emergent condition. - New Patient This patient is new to me today: No - Critical Care Critical Care patient: No
[2017-09-03] MEDS: POLYETHYLENE GLYCOL 3350 119 GM BTL PO SCH ×2 (14:41→21:15)
--- NOTE | 2017-09-03 16:25 | PN ---
Progress Note (short form) - Note Progress Note: AVSS COMFORTABLE NVI CALF SOFT AND NT IMP: DOING WELL PLAN: OON, PT-NWB DC TO HOME TOMORROW WITH SERVICES AND PT
[2017-09-04] MEDS: oxyCODONE HCL 5 MG TABLET PO PRN ×7 (01:05→23:36)
--- NOTE | 2017-09-04 10:09 | PN ---
Progress Note (short form) - Note Progress Note: AVSS COMFORTABLE BRISK CAP REFILL NVI IMP: DOING WELL PLAN: PT-NWB, DC TO HOME
[2017-09-04] MEDS: DOCUSATE SODIUM 100 MG CAPSULE (FP) PO SCH ×2 (10:32→21:31)
[2017-09-04] MEDS: POLYETHYLENE GLYCOL 3350 119 GM BTL PO SCH ×2 (10:33→21:31)
--- NOTE | 2017-09-04 10:43 | DS ---
Physical Exam: SUBJECTIVE: Patient seen and examined OBJECTIVE: Vital Signs Period Temp Pulse Resp BP Sys/Zeng Pulse Ox Last 24 Hr 98.3 F-99.0 F 72-80 18-20 117-130/74-78 96 PHYSICAL EXAM GENERAL: The patient is awake, alert, and fully oriented, in no acute distress. HEAD: Normal with no signs of trauma. EYES: PERRL, extraocular movements intact, sclera anicteric, conjunctiva clear. ENT: Ears normal, nares patent, oropharynx clear without exudates, moist mucous membranes. NECK: Trachea midline, full range of motion, supple. LUNGS: Breath sounds equal, clear to auscultation bilaterally, no wheezes, no crackles, no accessory muscle use. HEART: Regular rate and rhythm, S1, S2 without murmur, rub or gallop. ABDOMEN: Soft, nontender, nondistended, normoactive bowel sounds, no guarding, no rebound, no hepatosplenomegaly, no masses. EXTREMITIES: 2+ pulses, warm, well-perfused, no edema. NEUROLOGICAL: Cranial nerves II through XII grossly intact. Normal speech, gait not observed. PSYCH: Normal mood, normal affect. SKIN: Warm, dry, normal turgor, no rashes or lesions noted. LABS HOSPITAL COURSE: Date of Admission:08/30/17 Date of Discharge: 09/04/17 Minutes to complete discharge: 35 Discharge Summary Reason For Visit: SYNCOPE Current Active Problems Closed right ankle fracture (Acute) History of melanoma (Acute) Seizure (Acute) Syncope (Acute) Condition: Improved - Instructions Referrals: Montez Eason MD [Staff Physician] - Disposition: VNS/HOME HEALTH CARE - Home Medications Comprehensive Discharge Medication List: Ambulatory Orders NK [No Known Home Medication] 08/30/17 This patient is new to me today: No Emergency Visit: Yes ED Registration Date: 08/30/17 Care time: The patient presented to the Emergency Department on the above date and was hospitalized for further evaluation of their emergent condition. Critical Care patient: No - Discharge Referral Referred to [facility] Med P.C.: No
[2017-09-04] MEDS: ACETAMINOPHEN 325 MG TABLET (FP) PO PRN ×2 (14:52→20:38)
--- NOTE | 2017-09-04 18:42 | PN ---
Physical Exam: SUBJECTIVE: Patient seen and examined. States pain is well-managed. OBJECTIVE: Vital Signs Period Temp Pulse Resp BP Sys/Zeng Pulse Ox Last 24 Hr 98.7 F-101.1 F 72-89 20-20 120-127/74-79 96-97 GENERAL: The patient is awake, alert, and fully oriented, in no acute distress. LUNGS: Breath sounds equal, clear to auscultation bilaterally, no wheezes, no crackles, no accessory muscle use. HEART: Regular rate and rhythm, S1, S2 without murmur, rub or gallop. ABDOMEN: Soft, nontender, nondistended, normoactive bowel sounds, no guarding, no rebound UPPER EXTREMITIES: 2+ pulses, warm, well-perfused, no edema. RIGHT LOWER EXTREMITY: In cast from toes to knee; exposed tips of toes warm, well-perfused, +sensory/+motor NEUROLOGICAL: Cranial nerves II through XII grossly intact. Normal speech, gait not observed. Active Medications Generic Name Dose Route Start Last Admin Trade Name Freq PRN Reason Stop Dose Admin Acetaminophen 325 mg 09/02/17 17:40 09/04/17 14:52 Tylenol - PO 325 mg Q4H PRN Administration PAIN LEVEL 1 - 3 Acetaminophen 650 mg 09/04/17 17:35 Tylenol - PO Q6H PRN FEVER Docusate Sodium 100 mg 09/02/17 22:00 09/04/17 10:32 Colace - PO 100 mg BID STEFANIA Administration Oxycodone HCl 5 mg 09/04/17 18:03 Roxicodone - PO Q6H PRN PAIN LEVEL 1-5 Polyethylene Glycol 17 gm 09/03/17 14:00 09/04/17 10:33 Miralax (For Daily Use) - PO Not Given BID [facility] ASSESSMENT/PLAN: 36 year-old female with a PMH significant for melanoma and syncope. Admitted s/ p syncopal episode resulting in right ankle fracture. Underwent ORIF today. Right ankle fracture s/p ORIF --08/30 xray: nondisplaced spiral fracture of distal metaphysis of the tibia; mildly displaced comminuted fracture of distal metaphysis of fibula --09/02: open reduction and internal fixation of right distal tibia-fibula fracture with Dr. Eason --perioperative antibiotics --pain well-managed with PO meds Syncope --recurrent episodes over past several years --has had extensive workup with cardiology, neurology with no definitive diagnosis; will continue to be followed as outpatient Melanoma --no active issues --is followed by Dr. Aby Malcolm at [facility] Dispo: lives in a 2-story walkup with 11 year-old son; with history of recurrent syncope, unsafe to discharge to home; presently non weight-bearing; will need short-term rehab. Carl coming today to interview. Full code. Visit type - Emergency Visit Emergency Visit: Yes ED Registration Date: 08/30/17 Care time: The patient presented to the Emergency Department on the above date and was hospitalized for further evaluation of their emergent condition. - New Patient This patient is new to me today: No - Critical Care Critical Care patient: No
[2017-09-04 20:38] LABS: BASO % 0.6 % (0-2.0); EOS % 1.4 % (0-4.5); HEMATOCRIT 30.7 % (32.4-45.2); HEMOGLOBIN 10.1 GM/dL (10.7-15.3); LYMPH % 33.8 % (8-40); MCH 26.6 pg (25.7-33.7); MEAN CELL VOLUME 80.6 fl (80-96); MONO % 9.6 % (3.8-10.2); NEUT % 54.6 % (42.8-82.8); PLATELET COUNT 282 K/MM3 (134-434); RBC 3.81 M/mm3 (3.60-5.2); RDW 15.3 % (11.6-15.6); WHITE BLOOD COUNT 6.6 K/mm3 (4.0-10.0)
[2017-09-04 21:23] LABS: ALBUMIN 2.9 g/dl (3.4-5.0); ANION GAP 8 (8-16); BILIRUBIN,TOTAL 0.5 mg/dL (0.2-1.0); BLOOD UREA NITROGEN 10 mg/dL (7-18); CALCIUM 7.5 mg/dL (8.5-10.1); CHLORIDE 102 mmol/L (98-107); CO2 26 mmol/L (21-32); CREATININE 0.7 mg/dL (0.55-1.02); GLUCOSE,RANDOM 104 mg/dL (74-106); MAGNESIUM 1.8 mg/dL (1.8-2.4); PHOSPHOROUS 4.9 mg/dL (2.5-4.9); POTASSIUM 4.2 mmol/L (3.5-5.1); SGOT/AST 19 U/L (15-37); SGPT/ALT 23 U/L (12-78); SODIUM 136 mmol/L (136-145); TOT PROT 6.1 g/dl (6.4-8.2)
[2017-09-04 21:24] LABS: ALK PHOS 29 U/L (45-117)
[2017-09-05 00:52] LABS: URINE APPEARANCE CLEAR; URINE BILIRUBIN NEGATIVE (NEGATIVE); URINE BLOOD NEGATIVE (NEGATIVE); URINE COLOR STRAW; URINE GLUCOSE (UA) NEGATIVE (NEGATIVE); URINE KETONE NEGATIVE (NEGATIVE); URINE LEUK ESTERASE NEGATIVE (NEGATIVE); URINE NITRITE NEGATIVE (NEGATIVE); URINE PROTEIN NEGATIVE (NEGATIVE)
[2017-09-05] MEDS: oxyCODONE HCL 5 MG TABLET PO PRN ×3 (08:15→21:27)
[2017-09-05] MEDS: ACETAMINOPHEN 325 MG TABLET (FP) PO PRN ×2 (08:15→14:03)
[2017-09-05 08:52] LABS: BASO % 0.7 % (0-2.0); EOS % 2.5 % (0-4.5); HEMATOCRIT 31.3 % (32.4-45.2); HEMOGLOBIN 10.2 GM/dL (10.7-15.3); LYMPH % 31.3 % (8-40); MCH 26.4 pg (25.7-33.7); MCHC 32.6 g/dl (32.0-36.0); MEAN CELL VOLUME 80.8 fl (80-96); MEAN PLT VOLUME 6.9 fl (7.5-11.1); MONO % 9.3 % (3.8-10.2); NEUT % 56.2 % (42.8-82.8); PLATELET COUNT 305 K/MM3 (134-434); RBC 3.88 M/mm3 (3.60-5.2); RDW 15.1 % (11.6-15.6)
[2017-09-05 09:18] LABS: ANION GAP 9 (8-16); BLOOD UREA NITROGEN 8 mg/dL (7-18); CALCIUM 8.1 mg/dL (8.5-10.1); CHLORIDE 102 mmol/L (98-107); CO2 26 mmol/L (21-32); CREATININE 0.6 mg/dL (0.55-1.02); GLUCOSE,RANDOM 102 mg/dL (74-106); POTASSIUM 4.1 mmol/L (3.5-5.1); SGOT/AST 20 U/L (15-37); SGPT/ALT 25 U/L (12-78); SODIUM 137 mmol/L (136-145)
[2017-09-05 09:20] LABS: ALK PHOS 29 U/L (45-117); BILIRUBIN,TOTAL 0.6 mg/dL (0.2-1.0); TOT PROT 6.3 g/dl (6.4-8.2)
[2017-09-05] MEDS: POLYETHYLENE GLYCOL 3350 119 GM BTL PO SCH ×2 (10:16→21:28)
[2017-09-05] MEDS: DOCUSATE SODIUM 100 MG CAPSULE (FP) PO SCH ×2 (10:16→21:24)
--- NOTE | 2017-09-05 12:38 | PN ---
Progress Note (short form) - Note Progress Note: Subjective: The patient was seen at the bedside, she reports feeling good today Awaiting SNF placement Current Medications Generic Name Dose Route Start Last Admin Trade Name Ariana PRN Reason Stop Dose Admin Acetaminophen 325 mg 09/02/17 17:40 09/04/17 14:52 Tylenol - PO 325 mg Q4H PRN Administration PAIN LEVEL 1 - 3 Acetaminophen 650 mg 09/04/17 17:35 09/05/17 08:15 Tylenol - PO 650 mg Q6H PRN Administration FEVER Docusate Sodium 100 mg 09/02/17 22:00 09/05/17 10:16 Colace - PO 100 mg BID STEFANIA Administration Oxycodone HCl 5 mg 09/04/17 18:03 09/05/17 08:15 Roxicodone - PO 5 mg Q6H PRN Administration PAIN LEVEL 1-5 Polyethylene Glycol 17 gm 09/03/17 14:00 09/05/17 10:16 Miralax (For Daily Use) - PO Not Given BID STEFANIA Objective: Vital Signs Period Temp Pulse Resp BP Sys/Zeng Pulse Ox Last 24 Hr 99.0 F-101.6 F 73-86 19-20 115-128/70-79 97 Physical Exam: General: NAD, A&Ox3 Ext: Right lower extremity cast, cap refill <3 seconds CBCD WBC 6.0 K/mm3 (4.0-10.0) 09/05/17 07:40 RBC 3.88 M/mm3 (3.60-5.2) 09/05/17 07:40 Hgb 10.2 GM/dL (10.7-15.3) L 09/05/17 07:40 Hct 31.3 % (32.4-45.2) L 09/05/17 07:40 MCV 80.8 fl (80-96) 09/05/17 07:40 MCHC 32.6 g/dl (32.0-36.0) 09/05/17 07:40 RDW 15.1 % (11.6-15.6) 09/05/17 07:40 Plt Count 305 K/MM3 (134-434) 09/05/17 07:40 MPV 6.9 fl (7.5-11.1) L 09/05/17 07:40 CMP Sodium 137 mmol/L (136-145) 09/05/17 07:40 Potassium 4.1 mmol/L (3.5-5.1) 09/05/17 07:40 Chloride 102 mmol/L (98-107) 09/05/17 07:40 Carbon Dioxide 26 mmol/L (21-32) 09/05/17 07:40 Anion Gap 9 (8-16) 09/05/17 07:40 BUN 8 mg/dL (7-18) 09/05/17 07:40 Creatinine 0.6 mg/dL (0.55-1.02) 09/05/17 07:40 Creat Clearance w eGFR > 60 (>60) 09/05/17 07:40 Random Glucose 102 mg/dL (74-106) 09/05/17 07:40 Calcium 8.1 mg/dL (8.5-10.1) L 09/05/17 07:40 Total Bilirubin 0.6 mg/dL (0.2-1.0) 09/05/17 07:40 AST 20 U/L (15-37) 09/05/17 07:40 ALT 25 U/L (12-78) 09/05/17 07:40 Alkaline Phosphatase 29 U/L (45-117) L 09/05/17 07:40 Total Protein 6.3 g/dl (6.4-8.2) L 09/05/17 07:40 Albumin 3.0 g/dl (3.4-5.0) L 09/05/17 07:40 CARDIAC ENZYMES Creatine Kinase 110 IU/L (26-192) 08/30/17 09:32 Troponin I < 0.02 ng/ml (0.00-0.05) 08/30/17 09:32 Assessment: This is a 36 year old female with PMHx of melanoma, syncope, who presented to the ED s/p syncope with right ankle fracture. Plan: 1) Fever - Tmax 101.6 overnight - F/u 1) Right ankle fracture - 08/30 right ankle x-ray with fractures of the distal tibial and fibular metaphyses - S/p ORIF on 09/02/17 - Pain management - NWB - Appreciate ortho consult 2) Syncope - Has had recurrent episodes over the past several years - Likely vasovagal event - Prior cardiac workup unrevealing - Will need outpatient tilt table and possible loop recorder implant as outpatient - Appreciate cardiology consult - Appreciate neurology consult 3) F/E/N: - Regular diet - Monitor electrolytes 4) Prophylaxis: - Heparin 5,000u sq tid - PT 5) Dispo: - Awaiting SNF placement CODE STATUS: FULL CODE Visit type - Emergency Visit Emergency Visit: Yes ED Registration Date: 08/30/17 Care time: The patient presented to the Emergency Department on the above date and was hospitalized for further evaluation of their emergent condition. - New Patient This patient is new to me today: Yes Date on this admission: 09/05/17 - Critical Care Critical Care patient: No
[2017-09-05] MEDS: HEPARIN NA (PORCINE) 5,000 UNITS/ML 1ML VIAL SQ SCH ×2 (14:02→21:25)
[2017-09-06] MEDS: HEPARIN NA (PORCINE) 5,000 UNITS/ML 1ML VIAL SQ SCH ×2 (05:49→13:42)
[2017-09-06] MEDS: oxyCODONE HCL 5 MG TABLET PO PRN ×2 (05:52→13:43)
[2017-09-06] MEDS: ACETAMINOPHEN 325 MG TABLET (FP) PO PRN ×2 (05:53→13:43)
[2017-09-06] MEDS: DOCUSATE SODIUM 100 MG CAPSULE (FP) PO SCH (09:50)
[2017-09-06] MEDS: POLYETHYLENE GLYCOL 3350 119 GM BTL PO SCH (09:50)
--- NOTE | 2017-09-06 11:20 | DS ---
Physical Examination Vital Signs: Vital Signs Temperature 98.4 F 09/06/17 05:55 Pulse Rate 72 09/06/17 10:00 Respiratory Rate 20 09/06/17 10:00 Blood Pressure 133/98 09/06/17 10:00 O2 Sat by Pulse Oximetry (%) 98 09/05/17 20:11 Labs: CBC, BMP 09/05/17 07:40 09/05/17 07:40 Discharge Summary Reason For Visit: SYNCOPE Current Active Problems Closed right ankle fracture (Acute) History of melanoma (Acute) Seizure (Acute) Syncope (Acute) Condition: Improved - Instructions Diet, Activity, Other Instructions: Please return to the ED with new, persistent, or worsening symptoms. Please follow up with your surgeon, Dr. Eason, in one week. Referrals: Montez Eason MD [Staff Physician] - 1 Week Disposition: HALF-WAY FACILITY - Home Medications Comprehensive Discharge Medication List: Ambulatory Orders Acetaminophen [Tylenol .Regular Strength -] 325 mg PO Q4H PRN tablet 09/04/17 Docusate Sodium [Colace -] 100 mg PO BID capsule 09/04/17 Polyethylene Glycol 3350 [Miralax 119 gm Btl -] 17 gm PO BID bottle 09/04/17 Heparin - 5,000 unit SQ TID vial 09/06/17 oxyCODONE HCL [Roxicodone -] 5 mg PO Q6H PRN tablet MDD 20mg 09/06/17
[2017-09-06 15:24] VITALS: BP 128/84; PULSE 69; TEMP 98.9
== END 2017-09-06 17:00 | DRG 494 ==
LOC: JER 08:40 → JERBED 12:25 → J7W 14:39 → J6S 09-03 20:53
PROVIDERS: ADMIT Internal Medicine; ATTEND Registered Nurse
PROC: 0QSJ04Z Reposition Right Fibula with Internal Fixation Device, Open Approach (ICD-10-PCS; 2017-09-02)
PROC: 0QSG04Z Reposition Right Tibia with Internal Fixation Device, Open Approach (ICD-10-PCS; principal; 2017-09-02 15:30)
DX: S82.301A Unspecified fracture of lower end of right tibia, initial encounter for closed fracture (principal); S82.401A Unspecified fracture of shaft of right fibula, initial encounter for closed fracture; R55 Syncope and collapse; R56.9 Unspecified convulsions; Z85.820 Personal history of malignant melanoma of skin; W19.XXXA Unspecified fall, initial encounter; Y93.9 Activity, unspecified; Y92.89 Other specified places as the place of occurrence of the external cause; Y99.9 Unspecified external cause status
CPT/HCPCS: 36415; 70470-TC; 71045-TC-FY; 73610-TC-RT-FY; 73630-TC-RT-FY; 76000-TC-FY; 80053; 81003; 81015; 82550; 83605; 83735; 84100; 84484; 84703; 85025; 85610; 86850; 86900; 86901; 87040; 87086; 93005; 93010; 94760; 97116-GP; 97161-GP; 99284-25; J1644

== ENCOUNTER 2018-12-05 17:02 | Emergency (ER) | payer BC, OTHER ==
--- NOTE | 2018-12-05 17:26 | PDOC ---
Rapid Medical Evaluation Time Seen by Provider: 12/05/18 17:23 Medical Evaluation: Allergies Allergy/AdvReac Type Severity Reaction Status Date / Time No Known Allergies Allergy Verified 08/30/17 09:03 12/05/18 17:23 I have performed a brief in-person evaluation of this patient. The patient presents with a chief complaint of: LLQ pain/ told by Urgent care to come for eval of abd pain , no fevers Hx Gastric Bypass/ no cysts Pertinent physical exam findings: LLQ pain, I have ordered the following: UA/ Ucg? The patient will proceed to the ED for further evaluation.
[2018-12-05 17:29] VITALS: BP 105/63; PULSE 76; TEMP 98.5; BMI 40.3
--- NOTE | 2018-12-05 17:42 | PDOC ---
History of Present Illness - General History Source: Patient Exam Limitations: No Limitations - History of Present Illness Initial Comments: 12/05/18 18:03 38 year old female with PMH PCOS, gastric bypass, melanoma presented to ED for left adnexal pain x3 days. Pt stated her pain is worst with movement, radiating up into her LLQ. She denied fever, chills, nausea, vomiting, diarrhea, vaginal bleeding, vaginal discharge. LMP last week, which was normal in length and timing. Allergies: NKDA <Sarah Lomeli - Last Filed: 12/06/18 00:14> <Taylor Carrizales - Last Filed: 12/06/18 01:49> - General Chief Complaint: Pain Stated Complaint: PAIN IN LEFT QUADRANT Time Seen by Provider: 12/05/18 17:23 Past History - Past Medical History Anemia: No Asthma: No Cancer: Yes (melanoma) Cardiac Disorders: No CVA: No COPD: No CHF: No Dementia: No Diabetes: No GI Disorders: No Disorders: No HTN: No Hypercholesterolemia: No Liver Disease: No Seizures: Yes Thyroid Disease: No - Surgical History Abdominal Surgery: Yes (gastric sleeve) Appendectomy: Yes Cardiac Surgery: No Cholecystectomy: No Lung Surgery: No Neurologic Surgery: No Orthopedic Surgery: No - Immunization History Immunization Up to Date: Yes - Suicide/Smoking/Psychosocial Hx Smoking History: Never smoked Have you smoked in the past 12 months: No Number of Cigarettes Smoked Daily: 0 If you are a former smoker, when did you quit?: smokes hookah daily Cigars Per Day: 0 'Breaking Loose' booklet given: 02/27/16 Hx Alcohol Use: No Drug/Substance Use Hx: No Substance Use Type: Alcohol Hx Substance Use Treatment: No <Sarah Lomeli - Last Filed: 12/06/18 00:14> <Taylor Carrizales - Last Filed: 12/06/18 01:49> - Past Medical History Allergies/Adverse Reactions: Allergies Allergy/AdvReac Type Severity Reaction Status Date / Time No Known Allergies Allergy Verified 12/05/18 17:25 Home Medications: Ambulatory Orders Acetaminophen [Tylenol .Regular Strength -] 325 mg PO Q4H PRN tablet 09/04/17 Docusate Sodium [Colace -] 100 mg PO BID capsule 09/04/17 Polyethylene Glycol 3350 [Miralax 119 gm Btl -] 17 gm PO BID bottle 09/04/17 Heparin - 5,000 unit SQ TID vial 09/06/17 oxyCODONE HCL [Roxicodone -] 5 mg PO Q6H PRN tablet MDD 20mg 09/06/17 Naproxen 500 mg PO BID PRN #14 tablet 12/06/18 Review of Systems - Review of Systems Able to Perform ROS?: Yes Comments:: 12/05/18 18:04 General: denied fever, chills, generalized weakness. HEENT: denied sore throat, rhinorrhea, ear pain. Heart: denied chest pain, palpitations, syncope, diaphoresis. Respiratory: denied shortness of breath, cough, sputum production, hemoptysis. Abdomen: admitted to abdominal pain. denied nausea, vomiting, diarrhea, constipation, blood in stool. : admitted to adnexal pain. denied vaginal bleeding, vaginal discharge, dysuria, increased urinary frequency, hematuria, urinary incontinence, flank pain. Back: denied back pain. Musculoskeletal: denied joint pain, muscle pain, joint swelling. Neurological: denied headache, dizziness, numbness, tingling, weakness. Skin: denied rash, laceration, abrasion. <Yani,Sarah - Last Filed: 12/06/18 00:14> *Physical Exam - Vital Signs Last Vital Signs Temp Pulse Resp BP Pulse Ox 98.5 F 76 16 105/63 99 12/05/18 17:25 12/05/18 17:25 12/05/18 17:25 12/05/18 17:25 12/05/18 17:25 - Physical Exam Comments: 12/05/18 18:04 Constitutional: Well-nourished, Well-developed, appearing stated age. appears in pain. HEENT: head is normocephalic, atraumatic. EOMI. PERRLA. Neck: supple. Full ROM. Heart: regular rhythm. no murmurs, rubs or gallops. Lungs: clear to auscultation bilaterally. no crackles, rhonchi or wheezing. no stridor. Abdomen: soft, flat, tenderness to LLQ. normal bowel sounds. no rebound, guarding, masses. Extremities: peripheral pulses intact. no lower extremity edema. Pelvic: normal vaginal mucosa. normal external genitalia. cervix unable to be visualized. left sided adnexal tenderness. no CMT. rebound adnexal pain. Neurological: CN 2-12 grossly intact. moves all four extremities. Psych: awake, alert, oriented x3. follows commands. answers questions appropriately. <Sarah Lomeli - Last Filed: 12/06/18 00:14> - Vital Signs Last Vital Signs Temp Pulse Resp BP Pulse Ox 98.5 F 76 16 105/63 99 12/05/18 17:25 12/05/18 17:25 12/05/18 17:25 12/05/18 17:25 12/05/18 17:25 <Taylor Carrizales - Last Filed: 12/06/18 01:49> ED Treatment Course - LABORATORY CBC & Chemistry Diagram: 12/05/18 17:54 12/05/18 17:54 <Sarah Lomeli - Last Filed: 12/06/18 00:14> - LABORATORY CBC & Chemistry Diagram: 12/05/18 17:54 12/05/18 17:54 - ADDITIONAL ORDERS Additional order review: Laboratory Results 12/05/18 12/05/18 12/05/18 17:54 17:54 17:54 PT with INR 11.30 INR 0.96 PTT (Actin FS) 28.5 Sodium Potassium Chloride Carbon Dioxide Anion Gap BUN Creatinine Est GFR (CKD-EPI)AfAm Est GFR (CKD-EPI)NonAf Random Glucose Lactic Acid 1.2 Calcium Total Bilirubin AST ALT Alkaline Phosphatase Total Protein Albumin Lipase Serum , Qual Blood Type A POSITIVE Antibody Screen Negative 12/05/18 12/05/18 17:54 17:54 PT with INR INR PTT (Actin FS) Sodium 135 L Potassium 4.1 Chloride 102 Carbon Dioxide 25 Anion Gap 8 BUN 13 Creatinine 0.7 Est GFR (CKD-EPI)AfAm 126.49 Est GFR (CKD-EPI)NonAf 109.14 Random Glucose 96 Lactic Acid Calcium 9.1 Total Bilirubin 0.4 AST 29 ALT 33 Alkaline Phosphatase 39 L Total Protein 7.6 Albumin 3.8 Lipase 127 Serum , Qual Negative Blood Type Antibody Screen 12/05/18 17:54 RBC 4.67 MCV 78.9 L MCHC 32.2 RDW 16.2 H MPV 7.1 L Neutrophils % 54.9 Lymphocytes % 28.8 Monocytes % 11.0 H Eosinophils % 4.3 Basophils % 1.0 - Medications Given in the ED: ED Medications Discontinued Medications Generic Name Dose Route Start Last Admin Trade Name Ariana PRN Reason Stop Dose Admin Acetaminophen 1,000 mg 12/05/18 17:45 12/05/18 18:28 Ofirmev Injection - IVPB 12/05/18 17:46 1,000 mg ONCE ONE Administration Acetaminophen 1,000 mg 12/05/18 22:11 12/05/18 22:26 Ofirmev Injection - IVPB 12/05/18 22:12 1,000 mg ONCE ONE Administration Sodium Chloride 1,000 mls @ 1,000 mls/hr 12/05/18 17:45 12/05/18 18:28 Normal Saline - IV 12/05/18 18:44 1,000 mls/hr ASDIR STA Administration Ketorolac Tromethamine 15 mg 12/06/18 01:18 12/06/18 01:35 Toradol Injection - IVPUSH 12/06/18 01:19 15 mg ONCE ONE Administration <Taylor Carrizales - Last Filed: 12/06/18 01:49> Medical Decision Making - Medical Decision Making 12/05/18 18:06 38 year old female with above PMH presented to ED for left adnexal/LLQ pain. Initial Vital Signs Temp Pulse Resp BP Pulse Ox 98.5 F 76 16 105/63 99 12/05/18 17:25 12/05/18 17:25 12/05/18 17:25 12/05/18 17:25 12/05/18 17:25 Afebrile. No tachycardia. No tachypnea. Mild hypotension. No hypoxia on room air. Labs ordered: CBC, CMP, lipase, lactate, serum , UA/UC Imaging ordered: TVUS Medications ordered: normal saline bolus 1000 cc, tylenol IV 12/05/18 18:19 CBC WBC 5.8 K/mm3 (4.0-10.0) 12/05/18 17:54 RBC 4.67 M/mm3 (3.60-5.2) 12/05/18 17:54 Hgb 11.9 GM/dL (10.7-15.3) 12/05/18 17:54 Hct 36.8 % (32.4-45.2) D 12/05/18 17:54 MCV 78.9 fl (80-96) L 12/05/18 17:54 MCH 25.4 pg (25.7-33.7) L 12/05/18 17:54 MCHC 32.2 g/dl (32.0-36.0) 12/05/18 17:54 RDW 16.2 % (11.6-15.6) H 12/05/18 17:54 Plt Count 294 K/MM3 (134-434) 12/05/18 17:54 MPV 7.1 fl (7.5-11.1) L 12/05/18 17:54 Absolute Neuts (auto) 3.2 K/mm3 (1.5-8.0) 12/05/18 17:54 Neutrophils % 54.9 % (42.8-82.8) 12/05/18 17:54 Lymphocytes % 28.8 % (8-40) 12/05/18 17:54 Monocytes % 11.0 % (3.8-10.2) H 12/05/18 17:54 Eosinophils % 4.3 % (0-4.5) 12/05/18 17:54 Basophils % 1.0 % (0-2.0) 12/05/18 17:54 Nucleated RBC % 0 % (0-0) 12/05/18 17:54 No leukocytosis. No anemia. Low MCV. 12/05/18 19:22 CMP Sodium 135 mmol/L (136-145) L 12/05/18 17:54 Potassium 4.1 mmol/L (3.5-5.1) 12/05/18 17:54 Chloride 102 mmol/L (98-107) 12/05/18 17:54 Carbon Dioxide 25 mmol/L (21-32) 12/05/18 17:54 Anion Gap 8 MMOL/L (8-16) 12/05/18 17:54 BUN 13 mg/dL (7-18) 12/05/18 17:54 Creatinine 0.7 mg/dL (0.55-1.3) 12/05/18 17:54 Est GFR (CKD-EPI)AfAm 126.49 12/05/18 17:54 Est GFR (CKD-EPI)NonAf 109.14 12/05/18 17:54 Random Glucose 96 mg/dL (74-106) 12/05/18 17:54 Lactic Acid 1.2 mmol/L (0.4-2.0) 12/05/18 17:54 Calcium 9.1 mg/dL (8.5-10.1) 12/05/18 17:54 Total Bilirubin 0.4 mg/dL (0.2-1) 12/05/18 17:54 AST 29 U/L (15-37) 12/05/18 17:54 ALT 33 U/L (13-61) 12/05/18 17:54 Alkaline Phosphatase 39 U/L (45-117) L 12/05/18 17:54 Total Protein 7.6 g/dl (6.4-8.2) 12/05/18 17:54 Albumin 3.8 g/dl (3.4-5.0) 12/05/18 17:54 Lipase 127 U/L (73-393) 12/05/18 17:54 Serum , Qual Negative 12/05/18 17:54 No electrolyte abnormalities. No DEE. No lactic acidosis. No transaminitis. Normal lipase. Pt reassessed, reported improvement of pain from 04/30 to 12/29. 12/05/18 20:40 TVUS report: 2.3 cm ovarian cyst Imaging ordered: CT abdomen/pelvis with PO and IV contrast 12/06/18 00:[address] Carrizales. Pending CT report, UA/UC. <Sarah Lomeli - Last Filed: 12/06/18 00:14> *DC/Admit/Observation/Transfer <Sarah Lomeli - Last Filed: 12/06/18 00:14> <Taylor Carrizales - Last Filed: 12/06/18 01:49> Diagnosis at time of Disposition: Ovarian cyst, Abdominal pain - Prescriptions Prescriptions: Naproxen 500 mg PO BID PRN #14 tablet PRN Reason: Pain - Referrals Referrals: Ruth Oneill MD [Primary Care Provider] - - Patient Instructions
[2018-12-05] MEDS ORDERED: ACETAMINOPHEN 1000 MG/100 ML VIAL (NON FORMULARY) IVPB ONE ×2 (17:45→22:11)
[2018-12-05] MEDS ORDERED: SODIUM CHLORIDE 1,000 ML IV STA (17:45)
[2018-12-05 18:10] LABS: EOS % 4.3 % (0-4.5); HEMATOCRIT 36.8 % (32.4-45.2); HEMOGLOBIN 11.9 GM/dL (10.7-15.3); LYMPH % 28.8 % (8-40); MCH 25.4 pg (25.7-33.7); MCHC 32.2 g/dl (32.0-36.0); MEAN CELL VOLUME 78.9 fl (80-96); MEAN PLT VOLUME 7.1 fl (7.5-11.1); NEUT % 54.9 % (42.8-82.8); PLATELET COUNT 294 K/MM3 (134-434); RBC 4.67 M/mm3 (3.60-5.2); RDW 16.2 % (11.6-15.6); WHITE BLOOD COUNT 5.8 K/mm3 (4.0-10.0)
[2018-12-05] MEDS ORDERED: ACETAMINOPHEN INJECTION 100 ML IVPB ONE ×2 (18:15→22:21)
[2018-12-05 18:46] LABS: ALBUMIN 3.8 g/dl (3.4-5.0); BILIRUBIN,TOTAL 0.4 mg/dL (0.2-1); CALCIUM 9.1 mg/dL (8.5-10.1); CREATININE 0.7 mg/dL (0.55-1.3); POTASSIUM 4.1 mmol/L (3.5-5.1); TOT PROT 7.6 g/dl (6.4-8.2)
[2018-12-05 18:55] LABS: INR 0.96 (0.83-1.09); PROTHROMBIN TIME (PATIENT) 11.3 SEC (9.7-13.0)
[2018-12-05 18:58] LABS: ACTIVATED PTT 28.5 SECONDS (25.2-36.5)
[2018-12-06] MEDS ORDERED: KETOROLAC TROMETHAMINE 15 MG/ML VIAL IVPUSH ONE (01:18)
--- NOTE | 2018-12-06 01:22 | PDOC ---
Documentation entered by Remy Guadalupe SCRIBE, acting as scribe for Kofi Foster MD. Kofi Foster MD: This documentation has been prepared by the Collins ross Daniel, SCRIBE, under my direction and personally reviewed by me in its entirety. I confirm that the documentation accurately reflects all work, treatment, procedures, and medical decision making performed by me. Attending Attestation - Resident Resident Name: Sarah Lomeli - ED Attending Attestation I have performed the following: I have examined & evaluated the patient, The case was reviewed & discussed with the resident, I agree w/resident's findings & plan, Exceptions are as noted - HPI HPI: 12/05/18 18:16 The patient is a 38 year old female with a past medical history of PCOS, gastric bypass 2010, and melanoma here today for evaluation of abdominal pain. The patient reports that her pain began 3 days ago, is worse with movement, and is localized to the LLQ. She states the pain is dull, but hurt more where she was in her car driving over bumps. Denies nausea, vomiting, diarrhea. Denies vaginal bleeding, vaginal discharge. Patient denies headache, lightheadedness. Denies fever, chills. Denies chest pain, shortness of breath. Allergies: NKA - Physicial Exam PE: 12/06/18 01:14 agree with resident exam - Medical Decision Making 12/06/18 01:15 38yo F presents to the ED with LLQ pain for 3 days. Vitals wnl Exam with LLQ ttp, pelvic per Dr. Lomeli with L adnexal ttp DDx includes ovarian cyst vs diveriticulitis vs colitis vs fibroids US with L adnexal cyst, 2.3 cm cyst CTAP was obtained in light of gastric bypass history, reveals no acute abdominal pathology Plan for DC with [employer] f/u, treat pain with NSAIDs pt feeling better, clincially stable for DC home I discussed the physical exam findings, ancillary test results and final diagnoses with the patient. I answered all of the patient's questions. The patient was satisfied with the care received and felt comfortable with the discharge plan and treatment plan. The patient will call their primary care physician within 24 hours to arrange follow-up and will return to the Emergency Department with any new, persistent or worsening symptoms. *DC/Admit/Observation/Transfer Diagnosis at time of Disposition: Abdominal pain, Pelvic pain, Ovarian cyst - Discharge Dispostion Disposition: HOME Condition at time of disposition: Improved Decision to Admit order: No - Referrals Referrals: Ruth Oneill MD [Primary Care Provider] - - Patient Instructions Printed Discharge Instructions: DI for Ovarian Cyst Additional Instructions: Follow up with your [facility] within 1 week Take naproxen twice a day as needed for pain Do not take ibuprofen, motrin, advil or other NSAID medications if you are taking naproxen Return to the emergency department if you have any new, worsening, or concerning symptoms - Post Discharge Activity - Attestations Physician Attestion: 12/06/18 01:24 I, Dr. Kofi Foster MD, attest that this document has been prepared under my direction and personally reviewed by me in its entirety. I further attest, that it accurately reflects all work, treatment, procedures and medical decision -making performed by me.
[2018-12-06] MEDS ORDERED: KETOROLAC TROMETHAMINE 15 MG/ML VIAL ONE (01:27)
[2018-12-06 01:50] LABS: HCG,QUALITATIVE URINE Negative
[2018-12-06 04:09] LABS: URINE APPEARANCE Clear; URINE BILIRUBIN Negative (NEGATIVE); URINE COLOR Yellow; URINE GLUCOSE (UA) Negative (NEGATIVE); URINE KETONE Negative (NEGATIVE); URINE LEUK ESTERASE Negative (NEGATIVE); URINE NITRITE Negative (NEGATIVE); URINE PROTEIN Negative (NEGATIVE); URINE UROBILINOGEN 0.2 mg/dL (0.2-1.0)
== END 2018-12-06 01:52 | disposition home or self-care (01) ==
LOC: JER 17:02
PROC: 3E033NZ Introduction of Analgesics, Hypnotics, Sedatives into Peripheral Vein, Percutaneous Approach (ICD-10-PCS; principal; 2018-12-05)
PROC: 3E033NZ Introduction of Analgesics, Hypnotics, Sedatives into Peripheral Vein, Percutaneous Approach (ICD-10-PCS; 2018-12-05)
PROC: 3E0333Z Introduction of Anti-inflammatory into Peripheral Vein, Percutaneous Approach (ICD-10-PCS; 2018-12-05)
DX: N83.202 Unspecified ovarian cyst, left side (principal); E28.2 Polycystic ovarian syndrome; Z98.84 Bariatric surgery status
CPT/HCPCS: 36415; 74177-TC; 76830-TC; 80053; 81003; 83605; 83690; 84703; 85025; 85610; 85730; 86850; 86900; 86901; 99282-25; J0131; J7030

== ENCOUNTER 2019-06-09 21:43 | Emergency (ER) | payer BC, OTHER ==
[2019-06-09 21:56] VITALS: BMI 40.3
--- NOTE | 2019-06-09 23:39 | PDOC ---
Attending Attestation - Resident Resident Name: Cathleen Hudson - ED Attending Attestation I have performed the following: I have examined & evaluated the patient, The case was reviewed & discussed with the resident, I agree w/resident's findings & plan, Exceptions are as noted - HPI HPI: 06/09/19 23:38 38-year-old female had a syncopal episode while taking a shower fell and hit her head
--- NOTE | 2019-06-10 00:09 | PDOC ---
Documentation entered by Rosa Weiss SCRIBE, acting as scribe for Mary Epps MD. Mary Epps MD: This documentation has been prepared by the Abhishek ross Sammi, SCRIBE, under my direction and personally reviewed by me in its entirety. I confirm that the documentation accurately reflects all work, treatment, procedures, and medical decision making performed by me. Attending Attestation - Resident Resident Name: Cathleen Hudson - ED Attending Attestation I have performed the following: I have examined & evaluated the patient, The case was reviewed & discussed with the resident, I agree w/resident's findings & plan, Exceptions are as noted - HPI HPI: 06/09/19 23:37 The patient is a 38 year old female who presents to the emergency department for evaluation s/p syncopal episode around 9:30pm. The patient explains she was taking a hot shower when she began to feel lightheaded and dizzy, bringing herself closer to the ground as she felt faint. The patient recalls waking up on the floor of the shower. She complains of pain to the back of the head and upper back. She reports similar episodes in the past with the last being in August 2018. - Physicial Exam PE: 06/09/19 23:45 GENERAL: Well developed, well nourished. Awake and alert. No acute distress. HEENT: +1cm hematoma to the occipital region PERRLA, EOMI. No conjunctival pallor. Sclera are non-icteric. Moist mucous membranes. Oropharynx is clear. NECK: Supple. Full ROM. No JVD. Carotid pulses 2+ and symmetric, without bruits. No thyromegaly. No lymphadenopathy. BACK: +mid thoracic tenderness CARDIOVASCULAR: Regular rate and rhythm. No murmurs, rubs, or gallops. Distal pulses are 2+ and symmetric. PULMONARY: No evidence of respiratory distress. Lungs clear to auscultation bilaterally. No wheezing, rales or rhonchi. ABDOMINAL: Soft. Non-tender. Non-distended. No rebound or guarding. No organomegaly. Normoactive bowel sounds. MUSCULOSKELETAL Normal range of motion at all joints. No bony deformities or tenderness. No CVA tenderness. EXTREMITIES: No cyanosis. No clubbing. No edema. No calf tenderness. SKIN: Warm and dry. Normal capillary refill. No rashes. No jaundice. NEUROLOGICAL: Alert, awake, appropriate. No focal neurological deficits. PSYCHIATRIC: Cooperative. Good eye contact. Appropriate mood and affect. - Medical Decision Making 06/10/19 00:06 38-year-old female had a near syncopal episode while taking a shower. She came in with family and she was alert and conversant. Past medical history significant for multiple surgeries for melanoma, right skin graft, lymph node removal, hysterectomy last year for fibroid bleeding, gastric bypass and right ankle fracture,Appendectomy 06/10/19 00:08 Plan work-up including CAT scan of the head, CBC and comp EKG, troponin 06/10/19 01:37 CAT scan of the head did not show any acute intracranial pathology, no skull fracture no bleed no infarct Her labs were reviewed Troponin and EKG were unremarkable Patient discharged home
[2019-06-10] MEDS ORDERED: SODIUM CHLORIDE 1,000 ML IV STA (00:18)
[2019-06-10] MEDS ORDERED: ACETAMINOPHEN 325 MG TABLET (FP) PO ONE (00:18)
[2019-06-10 00:20] LABS: BASO % 0.5 % (0-2.0); EOS % 2.8 % (0-4.5); HEMATOCRIT 32.6 % (32.4-45.2); HEMOGLOBIN 10.3 GM/dL (10.7-15.3); LYMPH % 24.5 % (8-40); MCH 23.2 pg (25.7-33.7); MCHC 31.7 g/dl (32.0-36.0); MEAN CELL VOLUME 73.4 fl (80-96); MEAN PLT VOLUME 7.2 fl (7.5-11.1); MONO % 6.5 % (3.8-10.2); NEUT % 65.7 % (42.8-82.8); PLATELET COUNT 341 K/MM3 (134-434); RBC 4.44 M/mm3 (3.60-5.2); RDW 17.2 % (11.6-15.6); WHITE BLOOD COUNT 7.4 K/mm3 (4.0-10.0)
[2019-06-10] MEDS ORDERED: ACETAMINOPHEN 325 MG TABLET (FP) ONE (00:20)
[2019-06-10 00:47] LABS: ALBUMIN 3.5 g/dl (3.4-5.0); ALK PHOS 36 U/L (45-117); ANION GAP 9 MMOL/L (8-16); BILIRUBIN,TOTAL 0.4 mg/dL (0.2-1); CALCIUM 8.8 mg/dL (8.5-10.1); CHLORIDE 105 mmol/L (98-107); CO2 22 mmol/L (21-32); CREATININE 0.7 mg/dL (0.55-1.3); GLUCOSE,RANDOM 117 mg/dL (74-106); POTASSIUM 4.1 mmol/L (3.5-5.1); SGOT/AST 12 U/L (15-37); SGPT/ALT 17 U/L (13-61); SODIUM 136 mmol/L (136-145); TOT PROT 6.8 g/dl (6.4-8.2)
--- NOTE | 2019-06-10 01:10 | PDOC ---
History of Present Illness - General Chief Complaint: Lightheaded Stated Complaint: FALL Time Seen by Provider: 06/09/19 23:15 History Source: Patient Exam Limitations: No Limitations - History of Present Illness Initial Comments: Pt is a 38 yo F, with PMH of melanoma (in remission x7 years, no active tx), anemia, and prior syncope, who is presenting after a syncopal episode around 9 pm tonight. Pt states she smoked hookah in the afternoon, and was taking a hot shower when she began to experience vertigo and light-headedness. She called to her son, who found her on the floor of the shower. Pt denies any other precipitating symptoms (no chest pain, SOB), and had no incontinence of urine, generalized shaking, or tongue-biting. Pt denies recent fevers/chills, headache , vision changes, changes to appetite or sleep, chest pain, palpitations, SOB, nausea/vomiting, abdominal pain, urinary symptoms, diarrhea/constipation, or leg swelling. Allergies: NKCAMACHO PCP: Dr. Oneill Social: Pt smokes hookah daily. Pt denies any other cigarette, alcohol, or drug use. Pt denies any recent travel or sick contacts. Surgical: R tib/fib repair Family: no relevant history. 06/10/19 01:29 06/10/19 02:55 06/10/19 03:01 Past History - Travel Traveled outside of the country in the last 30 days: No Close contact w/someone who was outside of country & ill: No - Past Medical History Allergies/Adverse Reactions: Allergies Allergy/AdvReac Type Severity Reaction Status Date / Time No Known Allergies Allergy Verified 06/09/19 21:53 Anemia: No Asthma: No Cancer: Yes (melanoma) Cardiac Disorders: No CVA: No COPD: No CHF: No Dementia: No Diabetes: No GI Disorders: No Disorders: No HTN: No Hypercholesterolemia: No Liver Disease: No Seizures: Yes Thyroid Disease: No Other medical history: syncope - Surgical History Abdominal Surgery: Yes (gastric sleeve) Appendectomy: Yes Cardiac Surgery: No Cholecystectomy: No Lung Surgery: No Neurologic Surgery: No Orthopedic Surgery: No - Immunization History Immunization Up to Date: Yes - Psycho Social/Smoking Cessation Hx Smoking History: Never smoked Have you smoked in the past 12 months: No Number of Cigarettes Smoked Daily: 0 If you are a former smoker, when did you quit?: smokes hookah daily Cigars Per Day: 0 'Breaking Loose' booklet given: 02/27/16 Hx Alcohol Use: No Drug/Substance Use Hx: No Substance Use Type: Alcohol Hx Substance Use Treatment: No Cardiac Specific PMH - Complaint Specific PMHX Abdominal Aortic Aneurysm: No Angina: No Cardiac Arrhythmia: No Cardiac Stent: No GERD: No Myocardial Infarction: No Pacemaker: No Pulmonary Embolus: No Valvular Heart Disease: No Peripheral Vascular Disease: No Review of Systems - Review of Systems Able to Perform ROS?: Yes Is the patient limited British proficient: No Constitutional: Yes: Weight Stable. No: Chills, Diaphoresis, Fever, Loss of Appetite, Malaise, Weakness HEENTM: No: Recent change in vision, Nose Congestion, Throat Pain, Throat Swelling, Difficulty Swallowing Respiratory: No: Cough, Orthopnea, Shortness of Breath Cardiac (ROS): Yes: Lightheadedness, Syncope. No: Chest Pain, Edema, Irregular Heart Rate, Palpitations, Chest Tightness ABD/GI: No: Constipated, Diarrhea, Nausea, Poor Appetite, Poor Fluid Intake, Vomiting : No: Burning, Dysuria, Frequency, Pain, Urgency Musculoskeletal: Yes: Neck Pain (Upper neck/back pain after falling). No: Back Pain, Joint Pain, Muscle Pain, Muscle Weakness Integumentary: No: Rash Neurological: Yes: Dizziness. No: Headache, Numbness, Seizure, Weakness, Unsteady Gait Psychiatric: No: Sleep Pattern Change, Change in Appetite Endocrine: No: Increased Urine, Change in Weight Hematologic/Lymphatic: Yes: Anemia. No: Blood Clots, Easy Bleeding, Easy Bruising All Other Systems: Reviewed and Negative *Physical Exam - Vital Signs Last Vital Signs Temp Pulse Resp BP Pulse Ox 97.6 F 65 17 101/47 L 100 06/10/19 02:09 06/10/19 02:09 06/10/19 02:09 06/10/19 02:09 06/10/19 02:09 - Physical Exam Comments: Vitals stable, pt afebrile. Pt in NAD, obese body habitus. Pt alert and oriented x3. 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 Reproducible midline spinal TTP over cervical spine and paraspinal (trapezius); no step-offs or crepitus. Head normocephalic, atraumatic. Eyes PERRLA, EOMI. Oropharynx without erythema or exudates, no LAD b/l. No nasal congestion. Hearing intact. Clear heart sounds, S1/S2, no JVD, b/l pedal edema, or heart murmur. Clear lung sounds, no respiratory distress, wheezes, crackles, or accessory muscle use. No abdominal or CVA tenderness to palpation, no rebound, no guarding. Abdomen soft, non-distended, and with normoactive bowel sounds. Skin without jaundice or rash. 06/10/19 03:01 ED Treatment Course - LABORATORY CBC & Chemistry Diagram: 06/10/19 00:09 06/10/19 00:09 - ADDITIONAL ORDERS Additional order review: Laboratory Results 06/10/19 06/10/19 00:09 00:09 Sodium 136 Potassium 4.1 Chloride 105 Carbon Dioxide 22 Anion Gap 9 BUN 10.0 Creatinine 0.7 Est GFR (CKD-EPI)AfAm 126.49 Est GFR (CKD-EPI)NonAf 109.14 Random Glucose 117 H Calcium 8.8 Magnesium 2.0 Total Bilirubin 0.4 AST 12 L ALT 17 Alkaline Phosphatase 36 L Creatine Kinase 122 Troponin I < 0.02 Total Protein 6.8 Albumin 3.5 Urine Color Yellow Urine Appearance Clear Urine pH 5.5 Ur Specific [place] >= 1.030 Urine Protein 2+ H Urine Glucose (UA) Negative Urine Ketones Negative Urine Blood Negative Urine Nitrite Negative Urine Bilirubin Negative Urine Urobilinogen 1.0 Ur Leukocyte Esterase Negative Urine WBC (Auto) 3.2 Urine RBC (Auto) 8.5 Urine Casts (Auto) 5.19 U Epithel Cells (Auto) 7.8 Urine Bacteria (Auto) 496.3 06/10/19 00:09 RBC 4.44 MCV 73.4 L MCHC 31.7 L RDW 17.2 H MPV 7.2 L Neutrophils % 65.7 Lymphocytes % 24.5 Monocytes % 6.5 Eosinophils % 2.8 Basophils % 0.5 - RADIOLOGY Radiology Studies Ordered: Category Date Time Status CERVICAL SPINE CT W/O CONTR [CT] Stat CT Scan 06/10/19 00:[address] WITHOUT CONTRAST [CT] Stat CT Scan 06/10/19 00:03 Taken - Medications Given in the ED: ED Medications Discontinued Medications Generic Name Dose Route Start Last Admin Trade Name Freq PRN Reason Stop Dose Admin Acetaminophen 650 mg 06/10/19 00:18 06/10/19 00:27 Tylenol - PO 06/10/19 00:19 650 mg ONCE ONE Administration Sodium Chloride 1,000 mls @ 1,000 mls/hr 06/10/19 00:18 06/10/19 00:27 Normal Saline - IV 06/10/19 01:17 1,000 mls/hr ASDIR STA Administration Medical Decision Making - Medical Decision Making Pt was seen at bedside, also will be seen by attending Dr. Epps. Pt presenting after a syncopal episode. Story less concerning for seizure (no generalized shaking, tongue biting, incontinence). Likely vasovagal. Will also evaluate for ACS, electrolyte abnormalities, head mass/bleed, fractures. Provided 1 L IV NS and 650 mg PO tylenol for improvement of pain and hydration. Will continue to reassess pt and monitor for symptomatic improvement. ECG: NSR, intervals WNL (HR 70, IL 192, QRS 94, QTc 421). TWI in III, with no significant ST segment changes; generally low voltage. No significant changes from prior ECG (08/30/2017). 06/10/19 03:02 CBC and CMP generally WNL -- Fe-def anemia, not at level of transfusion. Advised pt to f/u with PCP Head and C-spine CT without acute pathology No further syncopal activity in ED Pt ambulating without difficulty, tolerating PO intake Pt safe for d/c to home with PCP f/u. Strict return precautions provided with pt understanding. 06/10/19 03:06 Discharge - Discharge Information Problems reviewed: Yes Clinical Impression/Diagnosis: Syncope Qualifiers: Syncope type: unspecified Qualified Code(s): R55 - Syncope and collapse Condition: Improved Disposition: HOME - Admission No - Follow up/Referral Referrals: [facility] [place] [facility] [Provider Group] Ruth Oneill MD [Primary Care Provider] - Sid Schmitz MD [Staff Physician] - - Patient Discharge Instructions Patient Printed Discharge Instructions: DI for Syncope in Adults (Fainting) Additional Instructions: You were seen in the ER today for losing consciousness. The results of your labs and imaging today were normal. Please follow-up with your primary care doctor and Neurology (Dr. Schmitz) within 1-2 days to discuss your visit and make sure your symptoms have improved. Please return to the ER if you have any worsening pain, development of fevers or chills, additional loss of consciousness, inability to tolerate food or fluids, or any other concerns. - Post Discharge Activity
[2019-06-10 01:16] LABS: PH,URINE 5.5 (5.0-8.0); URINE APPEARANCE Clear; URINE BILIRUBIN Negative (NEGATIVE); URINE COLOR Yellow; URINE GLUCOSE (UA) Negative (NEGATIVE); URINE KETONE Negative (NEGATIVE); URINE LEUK ESTERASE Negative (NEGATIVE); URINE NITRITE Negative (NEGATIVE); URINE PROTEIN 2+ (NEGATIVE)
[2019-06-10 01:24] LABS: EPI CELLS 7.8 /HPF (0-5/HPF); HYALINE CASTS 5.19 /lpf (0-8); URINE RBC 8.5 /hpf (0-4); URINE WBC 3.2 /hpf (0-5)
[2019-06-10 01:25] LABS: URINE BACTERIA 496.3 /hpf (NEGATIVE)
[2019-06-10 02:10] VITALS: BP 101/47; PULSE 65; TEMP 97.6
--- NOTE | 2019-06-10 10:35 | EKG ---
Test Reason : Blood Pressure : / mmHG Vent. Rate : 070 BPM Atrial Rate : 070 BPM P-R Int : 192 ms QRS Dur : 094 ms QT Int : 390 ms P-R-T Axes : 039 004 021 degrees QTc Int : 421 ms NORMAL SINUS RHYTHM NORMAL ECG WHEN COMPARED WITH ECG OF 30-AUG-2017 09:25, NO SIGNIFICANT CHANGE WAS FOUND Confirmed by YAZAN ZENG MD ([id number]) on 06/10/2019 10:35:14 AM Referred By: Confirmed By:YAZAN ZENG MD
== END 2019-06-10 02:10 | disposition home or self-care (01) ==
LOC: JER 21:43
PROC: 3E0337Z Introduction of Electrolytic and Water Balance Substance into Peripheral Vein, Percutaneous Approach (ICD-10-PCS; principal; 2019-06-09)
DX: R55 Syncope and collapse (principal); M54.2 Cervicalgia; W18.2XXA Fall in (into) shower or empty bathtub, initial encounter; Y93.E1 Activity, personal bathing and showering; Y92.031 Bathroom in apartment as the place of occurrence of the external cause; Y99.8 Other external cause status; Z86.69 Personal history of other diseases of the nervous system and sense organs; Z85.820 Personal history of malignant melanoma of skin; Z72.0 Tobacco use
CPT/HCPCS: 36415; 70450-TC; 72125-TC; 80053; 81003; 82550; 83735; 84484; 85025; 93005; 93010; 99283-25; J7030

== ENCOUNTER 2020-02-11 18:48 | Emergency (ER) | payer BC, OTHER ==
[2020-02-11 19:03] VITALS: TEMP 98.6; BMI 38.6
[2020-02-11] MEDS ORDERED: ACETAMINOPHEN 1000 MG/100 ML VIAL (NON FORMULARY) IVPB ONE (19:23)
[2020-02-11] MEDS ORDERED: LACTATED RINGERS SOLUTION 1000 ML INFUS.BAG IV ONE (19:24)
[2020-02-11] MEDS ORDERED: ACETAMINOPHEN INJECTION 100 ML IVPB ONE (19:33)
[2020-02-11] MEDS ORDERED: LIDOCAINE 5% TOPICAL PATCH TP ONE (20:08)
--- NOTE | 2020-02-11 20:17 | PDOC ---
History of Present Illness - General Chief Complaint: Syncope/Near Syncope Stated Complaint: SYNCOPE Time Seen by Provider: 02/11/20 18:48 - History of Present Illness Initial Comments: 02/11/20 19:43 39 yo female with pmh of seizure/syncopal events, Melanoma (last resection 2014 PET scan two years ago) presenting to the ED for seizure that occurred one hour prior to arrival. Pt explains she was walking to the toilet felt prodromal sxs of lightheadedness, sweating and low bp and then lost consciousness for about two to three minutes. Pt says that son said her bilateral lower ext were shaking but nothing else. During the event she also had bowel incontinence. After she explains she was out of it for a few minutes. One hour prior to event pt took 3 pills of steroids for skin rash. Pt has had prior episodes of seizures/syncope in the past, last being in July. Pt has had neurology follow up with Dr. Cm who put her on Keppra 500mg BID, which she states has been taking. Pt also had cardiology study due to syncope done in June. Pt currently states that she did not hit her head, but did hit her left shoulder and back. Has sharp 8/10 worse with movement on both left shoulder and left back. Pt denies any fevers, chills, SOB, chest pain, change in bowel movements or change in urination. PMH: Melanoma, seizure/syncope Meds: Steroids PSH: melanoma resection of left leg, Hysterectomy, appendectomy Allergies: Denies Social: Denies smoking drugs or alcohol. PCP: Pt is cousin of Dr. Oneill states he knows PCP [employer] Specialist: Dr. Cm Past History - Medical History Allergies/Adverse Reactions: Allergies Allergy/AdvReac Type Severity Reaction Status Date / Time pregabalin [From Lyrica] Allergy Verified 02/11/20 18:53 Home Medications: Ambulatory Orders levETIRAcetam [Keppra -] 1,000 mg PO BID 30 Days #60 tablet 02/11/20 Anemia: No Asthma: No Cancer: Yes (melanoma) Cardiac Disorders: No CVA: No COPD: No CHF: No Dementia: No Diabetes: No GI Disorders: No Disorders: No HTN: No Hypercholesterolemia: No Liver Disease: No Seizures: Yes Thyroid Disease: No - Surgical History Abdominal Surgery: Yes (gastric sleeve) Appendectomy: Yes Cardiac Surgery: No Cholecystectomy: No Lung Surgery: No Neurologic Surgery: No Orthopedic Surgery: No - Immunization History Immunization Up to Date: Yes - Psycho-Social/Smoking History Smoking History: Never smoked Have you smoked in the past 12 months: No Number of Cigarettes Smoked Daily: 0 If you are a former smoker, when did you quit?: smokes hookah daily Cigars Per Day: 0 'Breaking Loose' booklet given: 02/27/16 - Substance Abuse Hx (Audit-C & DAST Scrn) How often the patient has a drink containing alcohol: Never Score: In Men: 4 or > Positive; In Women: 3 or > Positive: 0 Screen Result (Pos requires Nsg. Audit-10AR): Negative In the last yr the pt used illegal drug/Rx for NonMed reason: No Score: Yes response is considered Positive: 0 Screen Result (Positive result requires Nsg. DAST-10): Negative Review of Systems - Review of Systems Comments:: 02/11/20 20:32 GENERAL/CONSTITUTIONAL: No fever or chills. No weakness. HEAD, EYES, EARS, NOSE AND THROAT: No change in vision. No ear pain or discharge. No sore throat. CARDIOVASCULAR: No chest pain or shortness of breath RESPIRATORY: No cough, wheezing, or hemoptysis. GASTROINTESTINAL: No nausea, vomiting, diarrhea or constipation. GENITOURINARY: No dysuria, frequency, or change in urination. MUSCULOSKELETAL: left sided back pain and shoulder pain SKIN: Skin rash behind knees NEUROLOGIC: No headache, vertigo. LOC ENDOCRINE: No increased thirst. No abnormal weight change ALLERGIC/IMMUNOLOGIC: No hives or skin allergy. *Physical Exam - Vital Signs Last Vital Signs Temp Pulse Resp BP Pulse Ox 98.6 F 77 20 97/59 L 100 02/11/20 18:53 02/11/20 18:53 02/11/20 18:53 02/11/20 18:53 02/11/20 18:53 - Physical Exam 02/11/20 20:33 GENERAL: Awake, alert, and fully oriented, in moderate distress holding left shoulder HEAD: No signs of trauma, normocephalic, atraumatic EYES: PERRLA, EOMI, sclera anicteric, conjunctiva clear ENT: Auricles normal inspection, hearing grossly normal, nares patent, oropharynx clear without exudates. Moist mucosa NECK: Normal ROM, supple, no lymphadenopathy, JVD, or masses LUNGS: No distress, speaks full sentences, clear to auscultation bilaterally HEART: Regular rate and rhythm, normal S1 and S2, no murmurs, rubs or gallops, peripheral pulses normal and equal bilaterally. ABDOMEN: Soft, nontender, normoactive bowel sounds. No guarding, no rebound. No masses EXTREMITIES : Normal inspection, Normal range of motion, no edema. No clubbing or cyanosis. Tenderness to palpation along Left spine of scapula. Tenderness to palpation on left paraspinal muscles. NEUROLOGICAL: Cranial nerves II through XII grossly intact. Normal speech, normal gait, no focal sensorimotor deficits SKIN: Warm, Dry, normal turgor, erythematous rash behind bilateral knees ED Treatment Course - LABORATORY CBC & Chemistry Diagram: 02/11/20 19:50 02/11/20 19:50 - RADIOLOGY Radiology Studies Ordered: Category Date Time Status HEAD CT WITHOUT CONTRAST [CT] Stat CT Scan 02/11/20 18:56 Ordered SHOULDER-LEFT [RAD] Stat Radiology 02/11/20 19:22 Ordered Medical Decision Making - Medical Decision Making 02/11/20 20:35 39 yo female with seizures on keppra presents to ED for syncopal event. Will get syncopal and seizure labs CBC, CMP, EKG, cardiac enzyme, lactic acid, CT head. 02/11/20 21:55 Lactic acid elevated so will repeat. Neurologist called wanted 1000 keppra IV and D/c take 1000mg keppra BID and then follow up next . 02/12/20 01:46 Pt lactic acid has dropped. Pt was notified of discharge plan and was agreeable to follow up with Neurologist and take Keppra 1000mg BID. Discharge - Discharge Information Problems reviewed: Yes Clinical Impression/Diagnosis: Seizure Condition: Stable Disposition: HOME - Additional Discharge Information Prescriptions: levETIRAcetam [Keppra -] 1,000 mg PO BID 30 Days #60 tablet - Follow up/Referral Referrals: Ruth Oneill MD [Primary Care Provider] - - Patient Discharge Instructions Patient Printed Discharge Instructions: Seizure Disorder -- Adult Additional Instructions: You came to the ED for syncopal event/seizure. This is most likely a seizure. At the ED you were given a CT head, EKG, xray of shoulder, and labs were drawn. One of you labs lactic acid was elevated we gave you fluid and it came down. The rest of the lab was within normal limits. The imaging was normal. We called your neurologist who said to give you 1000 mg keppra at the ED and discharge you 1000 mg keppra taken two times a day. We also called your neurologist who said they will book you an appointment for next . Please make sure to call him tomorrow to confirm the appointment. Return to the emergency department if you have the following: - another syncopal event - another seizure especially lasts greater than 5 minutes - chest pain - Shortness of breath - any emergent symptoms If you think you have an emergency call for medical help right away. - Post Discharge Activity
[2020-02-11 20:28] LABS: BASO % 0.7 % (0-2.0); EOS % 0.9 % (0-4.5); HEMATOCRIT 35.9 % (32.4-45.2); HEMOGLOBIN 11.5 GM/dL (10.7-15.3); LYMPH % 11.2 % (8-40); MCH 23.3 pg (25.7-33.7); MEAN CELL VOLUME 72.9 fl (80-96); MONO % 3.8 % (3.8-10.2); NEUT % 83.4 % (42.8-82.8); PLATELET COUNT 300 K/MM3 (134-434); RBC 4.92 M/mm3 (3.60-5.2); WHITE BLOOD COUNT 11.4 K/mm3 (4.0-10.0)
--- NOTE | 2020-02-11 20:29 | PDOC ---
Documentation entered by Elis Marquez SCRIBE, acting as scribe for Dee Dee Coates DO. Dee Dee Coates DO: This documentation has been prepared by the cody, Elis Marquez SCRIBE, under my direction and personally reviewed by me in its entirety. I confirm that the documentation accurately reflects all work, treatment, procedures, and medical decision making performed by me. Attending Attestation - Resident Resident Name: Emiliano Casetllon - ED Attending Attestation I have performed the following: I have examined & evaluated the patient, The case was reviewed & discussed with the resident, I agree w/resident's findings & plan, Exceptions are as noted - HPI HPI: 02/11/20 19:00 Patient is a 39 year old female with a significant past medical history of syncope, previous seizures (unknown cause), PCOS, gastric bypass 2011, and melanoma, who presents to the ED with a potential seizure from earlier today. Patient said she thinks she had a seizure because she experienced similar symptoms prior to episode like when she had her past seizures - sweating, lightheadedness, drop in blood pressure. Patient said she "knew something was wrong" so she called her son and he then found her on her bathroom floor wit h her legs shaking alternatively. Patient is compliant with medications. Patient denies: fevers, chills, nausea, vomiting, SOB, cough, congestion, chest pain, abdominal pain, back pain, diarrhea, any urinary issues, or any other related symptoms. Allergies: pregabalin PCP: Dr. Ruth Oneill - Physicial Exam PE: 02/11/20 20:25 gen: aaox3, nad heent: EOMI, MMM neck: supple, no midline ttp heart: +s1s2 reg lungs: cta b/l abd: soft, nt/nd +bs ext: no c/c/e, R posterior shoulder ttp across the spine of scapula, but from of the joint, R parapsinal back ttp, no midline back ttp stepoffs or deformities neuro: cn ii-xii grossly intact, no focal deficits, muscle strength 5/5 UE and LE - Medical Decision Making 02/11/20 20:27 a/p: 39yo female with hx of seizures on keppra who is compliant with her Keppra -pt with a break through seizure tonight -had her aura prior to seizure activity -son witnessed lower extremity shaking/twitching -L posterior shoulder pain and lbp -will send for head ct, labs, ekg, xray ryley -pain control -orthostatic vs and ivf hydration 02/11/20 21:[address] neg slightly elevated lactate, suspect from seizure activity, will repeat neg shoulder xray 02/11/20 21:[address] Avelar, requests keppra 1000mg iv now and then increase dose to keppra 1000mg po bid 02/11/20 21:50 shoulder xray without acute findings 02/11/20 22:50 lactate improving pt feeling much better stable for dc to home pt had a hysterectomy a year ago discussed keppra and oral hydration discussed follow up with Dr. Avelar next week Dr. Oneill to sheepskin pickler the patient Heart Score/ECG Review - ECG Intrepretation Comment:: 02/11/20 20:28 sinus at 73, nl axis, nl interval, no acute st/t wave findings Discharge - Discharge Information Problems reviewed: Yes Clinical Impression/Diagnosis: Seizure Condition: Stable Disposition: HOME - Admission No - Additional Discharge Information Prescriptions: levETIRAcetam [Keppra -] 1,000 mg PO BID 30 Days #60 tablet - Follow up/Referral Referrals: Ruth Oneill MD [Primary Care Provider] - - Patient Discharge Instructions Patient Printed Discharge Instructions: Seizure Disorder -- Adult Additional Instructions: You came to the ED for syncopal event/seizure. This is most likely a seizure. At the ED you were given a CT head, EKG, xray of shoulder, and labs were drawn. One of you labs lactic acid was elevated we gave you fluid and it came down. The rest of the lab was within normal limits. The imaging was normal. We called your neurologist who said to give you 1000 mg keppra at the ED and discharge you 1000 mg keppra taken two times a day. We also called your neurologist who said they will book you an appointment for next . Please make sure to call him to johana to confirm the appointment. Return to the emergency department if you have the following: - another syncopal event - another seizure especially lasts greater than 5 minutes - chest pain - Shortness of breath - any emergent symptoms If you think you have an emergency call for medical help right away. - Post Discharge Activity
[2020-02-11] MEDS ORDERED: LIDOCAINE 5% TOPICAL PATCH ONE (20:40)
[2020-02-11 20:51] LABS: ALBUMIN 3.5 g/dl (3.4-5.0); ALK PHOS 35 U/L (45-117); ANION GAP 13 MMOL/L (8-16); BILIRUBIN,TOTAL 0.3 mg/dL (0.2-1); BLOOD UREA NITROGEN 16.2 mg/dL (7-18); CALCIUM 8.6 mg/dL (8.5-10.1); CHLORIDE 105 mmol/L (98-107); CO2 20 mmol/L (21-32); CREATININE 1.1 mg/dL (0.55-1.3); GLUCOSE,RANDOM 166 mg/dL (74-106); POTASSIUM 3.9 mmol/L (3.5-5.1); SGOT/AST 18 U/L (15-37); SGPT/ALT 22 U/L (13-61); SODIUM 137 mmol/L (136-145); TOT PROT 7.3 g/dl (6.4-8.2)
[2020-02-11] MEDS ORDERED: levETIRAcetam 500 MG/5 ML INJECTION VIAL IVPB ONE ×2 (21:35→22:02)
[2020-02-11] MEDS ORDERED: LIDOCAINE PATCH REMOVAL MC SCH (22:00)
[2020-02-11 23:14] VITALS: BP 102/67; PULSE 74
[2020-02-11 23:37] LABS: PH,URINE 5.5 (5.0-8.0); URINE APPEARANCE CLEAR; URINE BILIRUBIN NEGATIVE (NEGATIVE); URINE COLOR YELLOW; URINE GLUCOSE (UA) NEGATIVE (NEGATIVE); URINE KETONE NEGATIVE (NEGATIVE); URINE LEUK ESTERASE NEGATIVE (NEGATIVE); URINE NITRITE NEGATIVE (NEGATIVE); URINE PROTEIN NEGATIVE (NEGATIVE)
[2020-02-11 23:41] LABS: HCG,QUALITATIVE URINE Negative
--- NOTE | 2020-02-12 11:15 | EKG ---
Test Reason : Blood Pressure : / mmHG Vent. Rate : 073 BPM Atrial Rate : 073 BPM P-R Int : 188 ms QRS Dur : 098 ms QT Int : 372 ms P-R-T Axes : 037 006 019 degrees QTc Int : 409 ms NORMAL SINUS RHYTHM NONSPECIFIC T WAVE ABNORMALITY ABNORMAL ECG WHEN COMPARED WITH ECG OF 10-JUN-2019 00:17, NO SIGNIFICANT CHANGE WAS FOUND Confirmed by MARBELLA ANGELO MD ([id number]) on 02/12/2020 11:15:01 AM Referred By: Confirmed By:MARBELLA ANGELO MD
== END 2020-02-11 23:19 | disposition home or self-care (01) ==
LOC: JER 18:48
PROC: 3E033NZ Introduction of Analgesics, Hypnotics, Sedatives into Peripheral Vein, Percutaneous Approach (ICD-10-PCS; principal; 2020-02-11)
PROC: 3E033GC Introduction of Other Therapeutic Substance into Peripheral Vein, Percutaneous Approach (ICD-10-PCS; 2020-02-11)
DX: R56.9 Unspecified convulsions (principal)
CPT/HCPCS: 36415; 70450-TC; 73030-TC-LT-FY; 80053; 81003; 82550; 83605; 84484; 84703; 85025; 87086; 93005; 93010; 99285-25; J0131

== ENCOUNTER 2021-03-28 14:01 | Emergency (ER) | payer BC, OTHER ==
[2021-03-28 14:29] VITALS: BP 102/71; PULSE 76; TEMP 98.6; BMI 38.9
[2021-03-28 15:36] LABS: BASO % 0.8 % (0-2.0); EOS % 2.4 % (0-4.5); HEMATOCRIT 36.2 % (32.4-45.2); HEMOGLOBIN 12.2 GM/dL (10.7-15.3); LYMPH % 22.3 % (8-40); MCH 25.5 pg (25.7-33.7); MCHC 33.8 g/dl (32.0-36.0); MEAN CELL VOLUME 75.4 fl (80-96); MEAN PLT VOLUME 6.6 fl (7.5-11.1); MONO % 8.6 % (3.8-10.2); NEUT % 65.9 % (42.8-82.8); PLATELET COUNT 284 10^3/uL (134-434); RDW 17.1 % (11.6-15.6); WHITE BLOOD COUNT 6.4 K/mm3 (4.0-10.0)
[2021-03-28 15:40] LABS: CHLORIDE 107 mmol/L (98-107); SODIUM 138 mmol/L (136-145)
[2021-03-28 15:47] LABS: GLUCOSE,RANDOM 106 mg/dL (74-106)
[2021-03-28 15:48] LABS: ALBUMIN 3.4 g/dl (3.4-5.0); BLOOD UREA NITROGEN 7.7 mg/dL (7-18)
[2021-03-28 15:49] LABS: ANION GAP 8 MMOL/L (8-16); CALCIUM 8.4 mg/dL (8.5-10.1); CO2 23 mmol/L (21-32)
[2021-03-28 15:52] LABS: CREATININE 0.7 mg/dL (0.55-1.3); SGOT/AST 16 U/L (15-37); SGPT/ALT 17 U/L (13-61)
[2021-03-28 15:54] LABS: ALK PHOS 34 U/L (45-117); BILIRUBIN,TOTAL 0.3 mg/dL (0.2-1)
== END 2021-03-28 18:41 | disposition home or self-care (01) ==
LOC: JER 14:01 → UNDOADMIN 17:48 → JERBED 17:48 → JER 18:41
DX: R55 Syncope and collapse (principal)
CPT/HCPCS: 36415; 71046-TC-FY; 73030-TC-LT-FY; 80053; 80177; 82550; 82962; 84484; 84703; 85025; 93005; 93010; 99285-25; C9803; U0003; U0005

== ENCOUNTER 2021-05-02 20:20 | Emergency (ER) | payer BC, OTHER ==
[2021-05-02 21:54] VITALS: BP 123/77; PULSE 91; TEMP 98.1; BMI 41.1
== END 2021-05-02 22:28 | disposition home or self-care (01) ==
LOC: JER 20:20
DX: J06.9 Acute upper respiratory infection, unspecified (principal)
CPT/HCPCS: 87070; 99283-25; C9803; U0003; U0005

== ENCOUNTER 2023-05-08 08:06 | Emergency (ER) | payer BC ==
[2023-05-08 08:22] VITALS: BMI 46.7
[2023-05-08] MEDS ORDERED: LIDOCAINE 1%/EPI 1:100000 (50 ML MULTI DOSE VIAL) ONE (09:47)
[2023-05-08] MEDS ORDERED: LIDOCAINE HCL/PF 2% SDV 5ML VIAL SQ ONE (09:47)
[2023-05-08 10:43] LABS: BASO % 0.7 % (0-2.0); EOS % 2.3 % (0-4.5); HEMOGLOBIN 15.4 GM/dL (10.7-15.3); LYMPH % 21.4 % (8-40); MCHC 33.4 g/dl (32.0-36.0); MEAN CELL VOLUME 92.8 fl (80-96); MONO % 9.2 % (3.8-10.2); NEUT % 66.4 % (42.8-82.8); PLATELET COUNT 225 10^3/uL (134-434); POTASSIUM 4.3 mmol/L (3.5-5.1); RBC 4.95 M/mm3 (3.60-5.2); RDW 13.2 % (11.6-15.6); WHITE BLOOD COUNT 6.3 K/mm3 (4.0-10.0)
[2023-05-08 10:45] LABS: ALBUMIN 3.7 g/dl (3.4-5.0); BLOOD UREA NITROGEN 12.7 mg/dL (7-18); CALCIUM 9.2 mg/dL (8.5-10.1)
[2023-05-08 10:48] LABS: CREATININE 0.7 mg/dL (0.55-1.3)
[2023-05-08 10:50] LABS: BILIRUBIN,TOTAL 0.4 mg/dL (0.2-1); TOT PROT 7.2 g/dl (6.4-8.2)
[2023-05-08 11:13] VITALS: TEMP 98.5
[2023-05-08] MEDS ORDERED: LACOSAMIDE 200 MG TABLET PO ONE (12:48)
[2023-05-08] MEDS ORDERED: LACOSAMIDE 50 MG TABLET PO ONE (12:51)
[2023-05-08 14:39] VITALS: BP 96/55; PULSE 70; RESP 13
[2023-05-08 15:13] LABS: EPI CELLS 12 /uL (0-25.1); HYALINE CASTS 0 /uL (0-3.1); PH,URINE 5.5 (5.0-8.0); URINE APPEARANCE CLEAR; URINE BACTERIA >9,000 /uL (0-1359); URINE BILIRUBIN NEGATIVE (NEGATIVE); URINE COLOR YELLOW; URINE GLUCOSE (UA) NEGATIVE (NEGATIVE); URINE KETONE NEGATIVE (NEGATIVE); URINE LEUK ESTERASE TRACE (NEGATIVE); URINE NITRITE NEGATIVE (NEGATIVE); URINE PROTEIN NEGATIVE (NEGATIVE); URINE RBC 7 /uL (0-23.9); URINE WBC 117 /uL (0-25.8)
== END 2023-05-08 14:43 | disposition home or self-care (01) ==
LOC: JER 08:06
DX: R56.9 Unspecified convulsions (principal); R41.82 Altered mental status, unspecified; R53.83 Other fatigue
CPT/HCPCS: 36415; 70450-TC; 80053; 80177; 81003; 82962; 83735; 84484; 84703; 85025; 87086; 87186; 93005; 93010; 99285-25

== ENCOUNTER 2023-05-17 15:18 | Emergency (ER) | payer BC ==
[2023-05-17 15:28] VITALS: BP 130/81; PULSE 76; RESP 17; TEMP 97.5; BMI 37.2
[2023-05-17] MEDS ORDERED: CEFTRIAXONE 1,000 MG in DEXTROSE 5%-WATER - 50 ML IVPB ONE (15:38)
[2023-05-17] MEDS ORDERED: ACETAMINOPHEN 1000 MG/100 ML BAG IVPB ONE (16:24)
[2023-05-17] MEDS ORDERED: CEFTRIAXONE 2 GM/100 ML BAG IVPB ONE (16:58)
[2023-05-17] MEDS ORDERED: ACETAMINOPHEN INJECTION 100 ML IVPB ONE (16:58)
[2023-05-17 17:47] LABS: EOS % 6.2 % (0-4.5); HEMATOCRIT 42.4 % (32.4-45.2); HEMOGLOBIN 14.8 GM/dL (10.7-15.3); LYMPH % 34.9 % (8-40); MCH 31.4 pg (25.7-33.7); MCHC 34.8 g/dl (32.0-36.0); MEAN CELL VOLUME 90.3 fl (80-96); MONO % 10.1 % (3.8-10.2); NEUT % 47.8 % (42.8-82.8); PLATELET COUNT 223 10^3/uL (134-434); RDW 13.4 % (11.6-15.6); WHITE BLOOD COUNT 4.3 K/mm3 (4.0-10.0)
[2023-05-17 18:07] LABS: BLOOD UREA NITROGEN 9.4 mg/dL (7-18)
[2023-05-17 18:10] LABS: CREATININE 0.7 mg/dL (0.55-1.3)
[2023-05-17 18:12] LABS: BILIRUBIN,TOTAL 0.5 mg/dL (0.2-1); TOT PROT 7.5 g/dl (6.4-8.2)
[2023-05-17 19:02] LABS: PH,URINE 5.5 (5.0-8.0); URINE APPEARANCE CLEAR; URINE BILIRUBIN NEGATIVE (NEGATIVE); URINE COLOR YELLOW; URINE GLUCOSE (UA) NEGATIVE (NEGATIVE); URINE KETONE NEGATIVE (NEGATIVE); URINE LEUK ESTERASE NEGATIVE (NEGATIVE); URINE NITRITE NEGATIVE (NEGATIVE); URINE PROTEIN NEGATIVE (NEGATIVE)
[2023-05-17] MEDS ORDERED: LIDOCAINE 5% TOPICAL PATCH TP ONE (19:47)
[2023-05-17] MEDS ORDERED: LIDOCAINE 4% PATCH TP ONE (20:04)
== END 2023-05-17 20:57 | disposition home or self-care (01) ==
LOC: JER 15:18
PROC: 3E03329 Introduction of Other Anti-infective into Peripheral Vein, Percutaneous Approach (ICD-10-PCS; principal; 2023-05-17)
PROC: 3E033NZ Introduction of Analgesics, Hypnotics, Sedatives into Peripheral Vein, Percutaneous Approach (ICD-10-PCS; 2023-05-17)
DX: R50.9 Fever, unspecified (principal); M54.6 Pain in thoracic spine; G40.909 Epilepsy, unspecified, not intractable, without status epilepticus; N39.0 Urinary tract infection, site not specified
CPT/HCPCS: 36415; 76775-TC; 76856-TC; 80053; 81003; 83605; 85025; 87040; 87086; 99284-25

== ENCOUNTER 2023-12-03 13:05 | Emergency (ER) | payer BC ==
[2023-12-03] MEDS ORDERED: ONDANSETRON 4 MG/2 ML VIAL ONE (13:38)
[2023-12-03 13:40] VITALS: TEMP 98.5; BMI 35.5
[2023-12-03] MEDS: ONDANSETRON 4 MG/2 ML VIAL IVPUSH ONE (13:57)
[2023-12-03] MEDS: SODIUM CHLORIDE 0.9% 500 ML INFUS.BAG IV ONE (13:57)
[2023-12-03 14:01] LABS: EOS % 3.7 % (0-4.5); HEMATOCRIT 45.4 % (32.4-45.2); HEMOGLOBIN 15.3 GM/dL (10.7-15.3); MCH 30.7 pg (25.7-33.7); MCHC 33.8 g/dl (32.0-36.0); MEAN PLT VOLUME 6.7 fl (7.5-11.1); MONO % 8.7 % (3.8-10.2); NEUT % 58.6 % (42.8-82.8); PLATELET COUNT 211 10^3/uL (134-434); RBC 4.98 M/mm3 (3.60-5.2); RDW 15.1 % (11.6-15.6); WHITE BLOOD COUNT 5.6 K/mm3 (4.0-10.0)
[2023-12-03 14:43] LABS: POTASSIUM 4.2 mmol/L (3.5-5.1)
[2023-12-03 14:45] LABS: ALBUMIN 3.6 g/dl (3.4-5.0)
[2023-12-03 14:46] LABS: BLOOD UREA NITROGEN 10.3 mg/dL (7-18)
[2023-12-03 14:49] LABS: CREATININE 0.7 mg/dL (0.55-1.3)
[2023-12-03 14:50] LABS: BILIRUBIN,TOTAL 0.3 mg/dL (0.2-1); TOT PROT 7.3 g/dl (6.4-8.2)
[2023-12-03 15:06] LABS: PH,URINE 6.5 (5.0-8.0); URINE APPEARANCE CLEAR; URINE BILIRUBIN NEGATIVE (NEGATIVE); URINE COLOR YELLOW; URINE GLUCOSE (UA) NEGATIVE (NEGATIVE); URINE KETONE NEGATIVE (NEGATIVE); URINE LEUK ESTERASE NEGATIVE (NEGATIVE); URINE NITRITE NEGATIVE (NEGATIVE); URINE PROTEIN NEGATIVE (NEGATIVE)
[2023-12-03 16:34] VITALS: BP 116/86; PULSE 67; RESP 16
== END 2023-12-03 16:34 | disposition home or self-care (01) ==
LOC: JER 13:05
PROC: 3E030GC Introduction of Other Therapeutic Substance into Peripheral Vein, Open Approach (ICD-10-PCS; principal; 2023-12-03)
DX: R42 Dizziness and giddiness (principal); R10.9 Unspecified abdominal pain; R11.0 Nausea; R20.2 Paresthesia of skin; Z20.822 Contact with and (suspected) exposure to COVID-19
CPT/HCPCS: 0241U-QW; 36415; 80053; 81003; 82962; 83605; 83735; 84484; 85025; 87086; 93005; 93010; 99284-25

== ENCOUNTER 2024-06-23 04:02 | Inpatient (IN) | payer BC ==
[2024-06-23 04:18] VITALS: TEMP 97.9
[2024-06-23] MEDS ORDERED: ACETAMINOPHEN INJECTION 100 ML ONE (05:04)
[2024-06-23] MEDS: ACETAMINOPHEN 1000 MG/100 ML BAG IVPB ONE (05:13)
[2024-06-23 05:45] LABS: BASO % 0.9 % (0-2.0); EOS % 5.7 % (0-4.5); HEMATOCRIT 47.4 % (32.4-45.2); HEMOGLOBIN 15.9 GM/dL (10.7-15.3); LYMPH % 26.4 % (8-40); MCHC 33.5 g/dl (32.0-36.0); MEAN CELL VOLUME 89.4 fl (80-96); MEAN PLT VOLUME 6.8 fl (7.5-11.1); MONO % 7.7 % (3.8-10.2); NEUT % 59.3 % (42.8-82.8); PLATELET COUNT 262 10^3/uL (134-434); RDW 15.1 % (11.6-15.6); WHITE BLOOD COUNT 5.1 K/mm3 (4.0-10.0)
[2024-06-23 06:08] LABS: POTASSIUM 4.2 mmol/L (3.5-5.1)
[2024-06-23 06:11] LABS: ALBUMIN 3.5 g/dl (3.4-5.0); BLOOD UREA NITROGEN 7.7 mg/dL (7-18); MAGNESIUM 2.1 mg/dL (1.8-2.4)
[2024-06-23 06:15] LABS: INR 0.96 (0.83-1.09); PROTHROMBIN TIME (PATIENT) 11.1 SEC (9.7-13.0)
[2024-06-23 06:17] LABS: BILIRUBIN,TOTAL 0.4 mg/dL (0.2-1); CREATININE 0.7 mg/dL (0.55-1.3); TOT PROT 7.1 g/dl (6.4-8.2)
[2024-06-23 06:18] LABS: ACTIVATED PTT 24.9 SECONDS (25.2-36.5)
[2024-06-23 07:23] LABS: POTASSIUM 4.1 mmol/L (3.5-5.1)
[2024-06-23 07:25] LABS: CALCIUM 8.9 mg/dL (8.5-10.1); MAGNESIUM 2.1 mg/dL (1.8-2.4)
[2024-06-23 07:29] LABS: CREATININE 0.7 mg/dL (0.55-1.3)
[2024-06-23] MEDS ORDERED: ENOXAPARIN NA (PORCINE) 40 MG/0.4 ML DISP.SYRIN SQ ONE (10:21)
[2024-06-23 13:14] VITALS: BP 124/85; PULSE 96; RESP 24; BMI 36.3
[2024-06-23] MEDS ORDERED: metoPROLOL SUCCINATE 25 MG TAB.SR.24H (FP) PO SCH (15:36)
[2024-06-23] MEDS ORDERED: levETIRAcetam 500 MG TABLET (FP) PO SCH (22:00)
[2024-06-24] MEDS ORDERED: ENOXAPARIN NA (PORCINE) 40 MG/0.4 ML DISP.SYRIN SQ SCH (10:00)
== END 2024-06-23 17:56 | disposition home or self-care (01) | DRG 312 ==
LOC: JER 04:02 → JERBED 04:59 → OBSVTOIN 07:52 → J4W 11:05
PROVIDERS: ADMIT Internal Medicine; ATTEND Internal Medicine
DX: R55 Syncope and collapse (principal); Z95.0 Presence of cardiac pacemaker
CPT/HCPCS: 0241U-QW; 36415; 70450-TC; 71045-TC-FY; 80048; 80053; 83735; 84484; 84703; 85025; 85610; 85730; 93005; 93010; 93306-TC; 99285-25; G0378; J0131

== ENCOUNTER 2024-11-27 06:49 | Emergency (ER) | payer BC ==
[2024-11-27 06:56] VITALS: RESP 18; TEMP 98.8; BMI 33.6
[2024-11-27] MEDS ORDERED: ACETAMINOPHEN 500 MG TABLET (FP) ONE (07:37)
[2024-11-27 07:55] LABS: EPI CELLS 32 /uL (0-25.1); HYALINE CASTS 29 /uL (0-3.1); PH,URINE 5.5 (5.0-8.0); URINE APPEARANCE TURBID; URINE BACTERIA 1115 /uL (0-1359); URINE BILIRUBIN 1+ (NEGATIVE); URINE COLOR ORANGE; URINE GLUCOSE (UA) NEGATIVE (NEGATIVE); URINE KETONE TRACE (NEGATIVE); URINE LEUK ESTERASE 2+ (NEGATIVE); URINE NITRITE NEGATIVE (NEGATIVE); URINE PROTEIN 3+ (NEGATIVE); URINE RBC 20393 /uL (0-23.9); URINE WBC 9096 /uL (0-25.8)
[2024-11-27] MEDS: ACETAMINOPHEN 500 MG TABLET (FP) PO ONE (08:00)
[2024-11-27] MEDS ORDERED: KETOROLAC TROMETHAMINE 30 MG/1 ML VIAL ONE (09:01)
[2024-11-27] MEDS: KETOROLAC TROMETHAMINE 30 MG/1 ML VIAL IM ONE (09:17)
[2024-11-27 10:58] VITALS: BP 118/79; PULSE 71
== END 2024-11-27 11:08 | disposition home or self-care (01) ==
LOC: JERFT 06:49 → JER 06:49 → JERFT 11:08
PROC: 3E0233Z Introduction of Anti-inflammatory into Muscle, Percutaneous Approach (ICD-10-PCS; principal; 2024-11-27)
DX: N39.0 Urinary tract infection, site not specified (principal); R10.30 Lower abdominal pain, unspecified; R31.0 Gross hematuria; R35.0 Frequency of micturition; R30.0 Dysuria
CPT/HCPCS: 74176-TC; 81003; 84703; 87086; 87186; 99285-25

== ENCOUNTER 2024-12-04 09:33 | Observation (INO) | payer BC ==
[2024-12-04] MEDS ORDERED: ACETAMINOPHEN INJECTION 100 ML ONE ×2 (10:04→10:08)
[2024-12-04] MEDS ORDERED: FAMOTIDINE 20 MG/50 ML IVPB 20 MG/50 ML MG IVPB ONE ×2 (10:04→10:09)
[2024-12-04] MEDS ORDERED: MAG HYDROX/AL HYDROX/SIMETH 30 ML UNIT-DOSE CUP ONE ×2 (10:04→10:09)
[2024-12-04] MEDS: MAG HYDROX/AL HYDROX/SIMETH 30 ML UNIT-DOSE CUP PO ONE (10:51)
[2024-12-04 11:22] LABS: PH,URINE 6.5 (5.0-8.0); URINE APPEARANCE CLEAR; URINE BILIRUBIN NEGATIVE (NEGATIVE); URINE COLOR YELLOW; URINE GLUCOSE (UA) NEGATIVE (NEGATIVE); URINE KETONE NEGATIVE (NEGATIVE); URINE LEUK ESTERASE NEGATIVE (NEGATIVE); URINE NITRITE NEGATIVE (NEGATIVE); URINE PROTEIN NEGATIVE (NEGATIVE); URINE UROBILINOGEN 0.2 mg/dL (0.2-1.0)
[2024-12-04] MEDS: SODIUM CHLORIDE 0.9% 500 ML INFUS.BAG IV ONE (11:53)
[2024-12-04] MEDS: FAMOTIDINE 20 MG/50 ML IVPB 20 MG/50 ML MG IVPB ONE (11:54)
[2024-12-04] MEDS: ACETAMINOPHEN 1000 MG/100 ML BAG IVPB ONE (11:54)
[2024-12-04] MEDS ORDERED: levETIRAcetam 500 MG TABLET (FP) PO ONE (12:07)
[2024-12-04] MEDS ORDERED: CEFTRIAXONE 1 G/50 ML PREMIX 50 ML IVPB ONE (12:07)
[2024-12-04] MEDS ORDERED: metoPROLOL SUCCINATE 25 MG TAB.SR.24H (FP) PO ONE (12:07)
[2024-12-04 12:09] LABS: ABSOLUTE IMMATURE GRANULOCYTES 0.05 x10^3/uL (0.0-0.031); BASOPHILS # 0.05 x10^3/uL (0.01-0.08); EOSINOPHIL % 1.8 % (0.7-5.8); EOSINOPHILS # 0.11 x10^3/uL (0.04-0.36); HEMATOCRIT 48.5 % (34.1-44.9); HEMOGLOBIN 16.5 g/dL (11.2-15.7); MEAN CELL VOLUME 94.2 fl (79.4-94.8); MEAN PLT VOLUME 8.6 fl (9.4-12.3); MONOCYTE # 0.59 x10^3/uL (0.24-0.86); MONOCYTE % 9.7 % (4.7-12.5); PLATELET COUNT 191 x10^3/uL (182-369); RDW 13.8 % (12.2-17.1)
[2024-12-04 12:19] LABS: HCG,QUALITATIVE URINE Negative
[2024-12-04] MEDS: CEFTRIAXONE 1 G/50 ML PREMIX 50 ML IVPB SCH (12:20)
[2024-12-04] MEDS: levETIRAcetam 500 MG TABLET (FP) PO SCH (12:20)
[2024-12-04 12:45] LABS: POTASSIUM 4.3 mmol/L (3.5-5.1)
[2024-12-04] MEDS: metoPROLOL SUCCINATE 25 MG TAB.SR.24H (FP) PO SCH (12:47)
[2024-12-04 12:48] LABS: BLOOD UREA NITROGEN 7.6 mg/dL (7-18)
[2024-12-04 12:52] LABS: BILIRUBIN,TOTAL 0.7 mg/dL (0.2-1)
[2024-12-04 12:53] LABS: CREATININE 0.8 mg/dL (0.55-1.3); TOT PROT 7.4 g/dl (6.4-8.2)
[2024-12-04 14:03] VITALS: RESP 18; BMI 33.7
[2024-12-04] MEDS ORDERED: ACETAMINOPHEN 500 MG TABLET (FP) PO PRN (15:43)
[2024-12-04] MEDS: ACETAMINOPHEN 1000 MG/100 ML BAG IVPB PRN (16:12)
[2024-12-04] MEDS: HEPARIN NA (PORCINE) 5,000 UNITS/ML 1ML VIAL SQ SCH (21:21)
[2024-12-05 08:33] LABS: ABSOLUTE IMMATURE GRANULOCYTES 0.02 x10^3/uL (0.0-0.031); BASOPHILS # 0.03 x10^3/uL (0.01-0.08); EOSINOPHIL % 2.8 % (0.7-5.8); EOSINOPHILS # 0.09 x10^3/uL (0.04-0.36); HEMATOCRIT 42.9 % (34.1-44.9); HEMOGLOBIN 13.9 g/dL (11.2-15.7); MCHC 32.4 g/dl (32.2-35.5); MEAN CELL VOLUME 95.1 fl (79.4-94.8); MEAN PLT VOLUME 8.9 fl (9.4-12.3); MONOCYTE # 0.41 x10^3/uL (0.24-0.86); MONOCYTE % 12.5 % (4.7-12.5); PLATELET COUNT 164 x10^3/uL (182-369); RDW 13.9 % (12.2-17.1)
[2024-12-05 08:51] LABS: POTASSIUM 3.9 mmol/L (3.5-5.1)
[2024-12-05 08:52] LABS: CALCIUM 8.7 mg/dL (8.5-10.1)
[2024-12-05 08:56] LABS: CREATININE 0.7 mg/dL (0.55-1.3)
[2024-12-05] MEDS: PHENAZOPYRIDINE HCL 100 MG TABLET (FP) PO ONE (09:53)
[2024-12-05] MEDS: PHENAZOPYRIDINE HCL 100 MG TABLET (FP) PO SCH (21:52)
[2024-12-05] MEDS: ACETAMINOPHEN 325 MG TABLET (FP) PO ONE (22:12)
[2024-12-06 10:00] LABS: HEMATOCRIT 45.9 % (34.1-44.9); HEMOGLOBIN 14.8 g/dL (11.2-15.7); MCHC 32.2 g/dl (32.2-35.5); MEAN CELL VOLUME 95.6 fl (79.4-94.8); MEAN PLT VOLUME 8.8 fl (9.4-12.3); PLATELET COUNT 164 x10^3/uL (182-369); RDW 13.6 % (12.2-17.1)
[2024-12-06 10:21] LABS: POTASSIUM 3.9 mmol/L (3.5-5.1)
[2024-12-06 10:33] LABS: BLOOD UREA NITROGEN 8.2 mg/dL (7-18); CALCIUM 8.9 mg/dL (8.5-10.1)
[2024-12-06] MEDS: MAG HYDROX/AL HYDROX/SIMETH 30 ML UNIT-DOSE CUP PO ONE (10:34)
[2024-12-06] MEDS: PANTOPRAZOLE 40 MG TABLET PO SCH (10:34)
[2024-12-06 10:37] LABS: CREATININE 0.6 mg/dL (0.55-1.3)
[2024-12-06 15:40] VITALS: BP 124/82; PULSE 61; TEMP 98.8
== END 2024-12-06 17:55 | disposition home or self-care (01) ==
LOC: JER 09:33 → JERBED 12:18 → J5S 13:26
PROVIDERS: ADMIT Internal Medicine; ATTEND Internal Medicine
PROC: 3E033NZ Introduction of Analgesics, Hypnotics, Sedatives into Peripheral Vein, Percutaneous Approach (ICD-10-PCS; principal; 2024-12-04)
PROC: 3E03329 Introduction of Other Anti-infective into Peripheral Vein, Percutaneous Approach (ICD-10-PCS; 2024-12-04)
PROC: 3E023GC Introduction of Other Therapeutic Substance into Muscle, Percutaneous Approach (ICD-10-PCS; 2024-12-04)
PROC: 3E0337Z Introduction of Electrolytic and Water Balance Substance into Peripheral Vein, Percutaneous Approach (ICD-10-PCS; 2024-12-04)
DX: N39.0 Urinary tract infection, site not specified (principal); R32 Unspecified urinary incontinence; R31.9 Hematuria, unspecified; I10 Essential (primary) hypertension; R56.9 Unspecified convulsions; Z88.8 Allergy status to other drugs, medicaments and biological substances
CPT/HCPCS: 36415; 71045-TC-FY; 76775-TC; 76856-TC; 80048; 80053; 81003; 82150; 83690; 84703; 85025; 85027; 87086; 87491; 87591; 87661; 93005; 93010; 99285-25; G0378; J0131; J1644

== ENCOUNTER 2025-03-17 16:41 | Observation (INO) | payer BC ==
[2025-03-17] MEDS ORDERED: PHENAZOPYRIDINE HCL 100 MG TABLET (FP) ONE (18:11)
[2025-03-17] MEDS ORDERED: ACETAMINOPHEN INJECTION 100 ML ONE (18:11)
[2025-03-17] MEDS ORDERED: PIPERACILLIN/TAZOB 4.5 GM 4.5 GM/100 ML BAG IVPB ONE (18:11)
[2025-03-17] MEDS: SODIUM CHLORIDE 0.9% 500 ML INFUS.BAG IV ONE (18:19)
[2025-03-17] MEDS: ACETAMINOPHEN 1000 MG/100 ML BAG IVPB ONE (18:19)
[2025-03-17] MEDS: PHENAZOPYRIDINE HCL 100 MG TABLET (FP) PO ONE (18:20)
[2025-03-17] MEDS: CEFTRIAXONE 1,000 MG in DEXTROSE 5%-WATER - 50 ML IVPB ONE ×2 (18:20→18:37)
[2025-03-17] MEDS: PIPERACILLIN/TAZOB 4.5 GM 4.5 GM in DEXTROSE 5%-WATER 100 ML IVPB ONE (18:36)
[2025-03-17 19:08] LABS: ABSOLUTE IMMATURE GRANULOCYTES 0.06 x10^3/uL (0.0-0.031); BASOPHILS # 0.05 x10^3/uL (0.01-0.08); EOSINOPHIL % 3.0 % (0.7-5.8); EOSINOPHILS # 0.16 x10^3/uL (0.04-0.36); MCHC 32.8 g/dl (32.2-35.5); MEAN CELL VOLUME 98.1 fl (79.4-94.8); MEAN PLT VOLUME 9.2 fl (9.4-12.3); MONOCYTE # 0.47 x10^3/uL (0.24-0.86); MONOCYTE % 8.9 % (4.7-12.5); RDW 13.6 % (12.2-17.1)
[2025-03-17] MEDS ORDERED: ONDANSETRON 4 MG/2 ML VIAL IVPUSH PRN (19:25)
[2025-03-17] MEDS ORDERED: ACETAMINOPHEN 1000 MG/100 ML BAG IVPB PRN (19:28)
[2025-03-17 19:37] LABS: GLUCOSE,RANDOM 101.0 mg/dL (74-106)
[2025-03-17 19:38] LABS: TOT PROT 8.3 g/dl (6.4-8.2)
[2025-03-17 19:39] LABS: CO2 22.0 mmol/L (21-32)
[2025-03-17 19:40] LABS: ALK PHOS 30.0 U/L (40-150)
[2025-03-17] MEDS ORDERED: morphine CARPU-JECT 2 MG/1 ML DISP.SYRIN IM PRN (19:42)
[2025-03-17 19:43] LABS: CREATININE 0.75 mg/dL (0.55-1.3); SGOT/AST 45.0 U/L (5-34); SGPT/ALT 20.0 U/L (0-55)
[2025-03-17] MEDS: SODIUM CHLORIDE 1,000 ML IV SCH (19:51)
[2025-03-17] MEDS: KETOROLAC TROMETHAMINE 15 MG/ML VIAL IVPUSH ONE (19:51)
[2025-03-17] MEDS: levETIRAcetam 500 MG TABLET (FP) PO SCH (22:09)
[2025-03-17] MEDS: PIPERACILLIN/TAZOB 4.5 GM 4.5 GM in DEXTROSE 5%-WATER 100 ML IVPB SCH (22:09)
[2025-03-17 22:20] LABS: GLUCOSE,RANDOM 109.0 mg/dL (74-106)
[2025-03-17 22:21] LABS: CO2 23.0 mmol/L (21-32)
[2025-03-17 22:25] LABS: CREATININE 0.79 mg/dL (0.55-1.3)
[2025-03-17] MEDS: KETOROLAC TROMETHAMINE 15 MG/ML VIAL IVPUSH PRN (22:27)
[2025-03-17 23:23] VITALS: BMI 35.6
[2025-03-18] MEDS ORDERED: morphine CARPU-JECT 2 MG/1 ML DISP.SYRIN IVPB PRN (04:08)
[2025-03-18] MEDS: morphine CARPU-JECT 2 MG/1 ML DISP.SYRIN IVPUSH PRN (04:19)
[2025-03-18] MEDS: morphine CARPU-JECT 2 MG/1 ML DISP.SYRIN IVPUSH ONE (08:06)
[2025-03-18 09:17] LABS: MCHC 33.1 g/dl (32.2-35.5); MEAN CELL VOLUME 97.9 fl (79.4-94.8); MEAN PLT VOLUME 9.0 fl (9.4-12.3); RDW 13.4 % (12.2-17.1)
[2025-03-18] MEDS: ENOXAPARIN NA (PORCINE) 40 MG/0.4 ML DISP.SYRIN SQ SCH (09:40)
[2025-03-18 09:42] LABS: GLUCOSE,RANDOM 137.0 mg/dL (74-106); TOT PROT 6.1 g/dl (6.4-8.2)
[2025-03-18 09:43] LABS: CO2 22.0 mmol/L (21-32)
[2025-03-18 09:45] LABS: ALK PHOS 25.0 U/L (40-150)
[2025-03-18 09:47] LABS: SGPT/ALT 14.0 U/L (0-55)
[2025-03-18 09:48] LABS: CREATININE 0.83 mg/dL (0.55-1.3); SGOT/AST 18.0 U/L (5-34)
[2025-03-18] MEDS: CEFTRIAXONE 1 GM in DEXTROSE 5%-WATER - 50 ML IVPB SCH (10:22)
[2025-03-18] MEDS: MEROPENEM 1 GM in DEXTROSE 5%-WATER 100 ML IVPB SCH (11:04)
[2025-03-18 11:30] LABS: EPI CELLS 28 /uL (0-25.1); HYALINE CASTS 0 /uL (0-3.1); URINE APPEARANCE CLEAR; URINE BILIRUBIN 1+ (NEGATIVE); URINE COLOR DK YELLOW; URINE GLUCOSE (UA) NEGATIVE (NEGATIVE); URINE KETONE NEGATIVE (NEGATIVE); URINE LEUK ESTERASE TRACE (NEGATIVE); URINE NITRITE POSITIVE (NEGATIVE); URINE PROTEIN 1+ (NEGATIVE); URINE RBC 20 /uL (0-23.9); URINE UROBILINOGEN 1.0 mg/dL (0.2-1.0); URINE WBC 8 /uL (0-25.8)
[2025-03-18 12:18] LABS: URINE BACTERIA 264 /uL (0-1359)
[2025-03-18] MEDS: TIGECYCLINE 100 MG in DEXTROSE 5%-WATER - 100 ML IVPB ONE (12:30)
[2025-03-18] MEDS: TIGECYCLINE 50 MG in DEXTROSE 5%-WATER - 100 ML IVPB SCH (21:35)
[2025-03-19 08:04] LABS: ABSOLUTE IMMATURE GRANULOCYTES 0.04 x10^3/uL (0.0-0.031); BASOPHILS # 0.03 x10^3/uL (0.01-0.08); EOSINOPHIL % 3.9 % (0.7-5.8); EOSINOPHILS # 0.16 x10^3/uL (0.04-0.36); MCHC 32.7 g/dl (32.2-35.5); MEAN CELL VOLUME 98.2 fl (79.4-94.8); MEAN PLT VOLUME 9.0 fl (9.4-12.3); MONOCYTE # 0.37 x10^3/uL (0.24-0.86); MONOCYTE % 9.0 % (4.7-12.5); RDW 13.4 % (12.2-17.1)
[2025-03-19 08:56] LABS: GLUCOSE,RANDOM 99.0 mg/dL (74-106)
[2025-03-19 08:57] LABS: TOT PROT 5.4 g/dl (6.4-8.2)
[2025-03-19 08:58] LABS: CO2 22.0 mmol/L (21-32)
[2025-03-19 08:59] LABS: ALK PHOS 20.0 U/L (40-150)
[2025-03-19 09:02] LABS: CREATININE 0.72 mg/dL (0.55-1.3); SGOT/AST 16.0 U/L (5-34); SGPT/ALT 8.0 U/L (0-55)
[2025-03-19] MEDS: BANATROL PLUS POWDER PACKET PO SCH (15:07)
[2025-03-19] MEDS: SODIUM CHLORIDE 1,000 ML IV SCH (15:07)
[2025-03-19] MEDS: VANCOMYCIN HCL 125 MG CAPSULE (RESTRICTED TO ID ONLY) PO SCH (18:01)
[2025-03-19] MEDS ORDERED: PIPERACILLIN/TAZOB 4.5 GM 4.5 GM in DEXTROSE 5%-WATER 100 ML IVPB SCH (21:00)
[2025-03-20] MEDS: BISMUTH SUBSALICYLATE 524 MG/30 ML PO ONE (00:39)
[2025-03-20 07:58] LABS: ABSOLUTE IMMATURE GRANULOCYTES 0.02 x10^3/uL (0.0-0.031); BASOPHILS # 0.02 x10^3/uL (0.01-0.08); RDW 13.2 % (12.2-17.1)
[2025-03-20 08:00] LABS: EOSINOPHIL % 3.2 % (0.7-5.8); EOSINOPHILS # 0.14 x10^3/uL (0.04-0.36); IMMATURE PLATELET FRACTION # 1.20 x10^3/uL; MCHC 33.2 g/dl (32.2-35.5); MEAN CELL VOLUME 97.2 fl (79.4-94.8); MEAN PLT VOLUME 8.9 fl (9.4-12.3); MONOCYTE # 0.44 x10^3/uL (0.24-0.86); MONOCYTE % 10.1 % (4.7-12.5)
[2025-03-20 08:18] LABS: GLUCOSE,RANDOM 99.0 mg/dL (74-106)
[2025-03-20 08:19] LABS: TOT PROT 5.4 g/dl (6.4-8.2)
[2025-03-20 08:20] LABS: CO2 21.0 mmol/L (21-32)
[2025-03-20 08:22] LABS: ALK PHOS 21.0 U/L (40-150)
[2025-03-20 08:24] LABS: SGOT/AST 20.0 U/L (5-34); SGPT/ALT 11.0 U/L (0-55)
[2025-03-20 08:25] LABS: CREATININE 0.79 mg/dL (0.55-1.3)
[2025-03-20] MEDS ORDERED: VANCOMYCIN HCL 125 MG CAPSULE (RESTRICTED TO ID ONLY) PO SCH (11:45)
[2025-03-20] MEDS: LACTATED RINGERS SOLUTION 1,000 ML/1,000 ML INFUS.BAG IV SCH (12:13)
[2025-03-20] MEDS: VANCOMYCIN HCL 250 MG PO SCH (12:13)
[2025-03-21] MEDS: FAMOTIDINE 10 MG TABLET PO ONE (02:40)
[2025-03-21 08:21] LABS: ABSOLUTE IMMATURE GRANULOCYTES 0.02 x10^3/uL (0.0-0.031); BASOPHILS # 0.03 x10^3/uL (0.01-0.08); EOSINOPHIL % 2.6 % (0.7-5.8); EOSINOPHILS # 0.11 x10^3/uL (0.04-0.36); MCHC 33.3 g/dl (32.2-35.5); MEAN CELL VOLUME 98.0 fl (79.4-94.8); MEAN PLT VOLUME 8.9 fl (9.4-12.3); MONOCYTE # 0.35 x10^3/uL (0.24-0.86); MONOCYTE % 8.3 % (4.7-12.5); RDW 13.3 % (12.2-17.1)
[2025-03-21 08:41] LABS: GLUCOSE,RANDOM 113.0 mg/dL (74-106); TOT PROT 5.4 g/dl (6.4-8.2)
[2025-03-21 08:42] LABS: CO2 24.0 mmol/L (21-32)
[2025-03-21 08:44] LABS: ALK PHOS 23.0 U/L (40-150)
[2025-03-21 08:47] LABS: CREATININE 0.78 mg/dL (0.55-1.3); SGOT/AST 19.0 U/L (5-34); SGPT/ALT 12.0 U/L (0-55)
[2025-03-21] MEDS: MINERAL OIL/PET HY-PHL TOPICAL OINTMENT 454 GM JAR TP SCH (16:18)
[2025-03-21] MEDS: PHENYLEPHRINE HCL/COCOA BUTTER 1 EACH SUPP.RECT RC SCH (18:58)
[2025-03-22 08:09] LABS: ABSOLUTE IMMATURE GRANULOCYTES 0.01 x10^3/uL (0.0-0.031); BASOPHILS # 0.02 x10^3/uL (0.01-0.08); EOSINOPHIL % 3.6 % (0.7-5.8); EOSINOPHILS # 0.15 x10^3/uL (0.04-0.36); MCHC 33.1 g/dl (32.2-35.5); MEAN CELL VOLUME 96.7 fl (79.4-94.8); MEAN PLT VOLUME 9.0 fl (9.4-12.3); MONOCYTE # 0.38 x10^3/uL (0.24-0.86); MONOCYTE % 9.1 % (4.7-12.5); RDW 13.1 % (12.2-17.1)
[2025-03-22 08:31] LABS: GLUCOSE,RANDOM 89 mg/dL (74-106); TOT PROT 5.6 g/dl (6.4-8.2)
[2025-03-22 08:32] LABS: CO2 21 mmol/L (21-32)
[2025-03-22 08:34] LABS: ALK PHOS 27 U/L (40-150)
[2025-03-22 08:36] LABS: SGOT/AST 19 U/L (5-34); SGPT/ALT 12 U/L (0-55)
[2025-03-22 08:37] LABS: CREATININE 0.75 mg/dL (0.55-1.3)
[2025-03-22] MEDS ORDERED: SIMETHICONE 40 MG/0.6 ML BOTTLE PO PRN (10:52)
[2025-03-22] MEDS: BANATROL PLUS POWDER PACKET PO SCH (13:53)
[2025-03-23 08:33] LABS: ABSOLUTE IMMATURE GRANULOCYTES 0.03 x10^3/uL (0.0-0.031); BASOPHILS # 0.02 x10^3/uL (0.01-0.08); EOSINOPHIL % 2.3 % (0.7-5.8); EOSINOPHILS # 0.10 x10^3/uL (0.04-0.36); MCHC 34.1 g/dl (32.2-35.5); MEAN CELL VOLUME 94.7 fl (79.4-94.8); MEAN PLT VOLUME 9.0 fl (9.4-12.3); MONOCYTE # 0.42 x10^3/uL (0.24-0.86); MONOCYTE % 9.6 % (4.7-12.5); RDW 12.6 % (12.2-17.1)
[2025-03-23 08:54] LABS: GLUCOSE,RANDOM 86.0 mg/dL (74-106); TOT PROT 5.8 g/dl (6.4-8.2)
[2025-03-23 08:55] LABS: CO2 21.0 mmol/L (21-32)
[2025-03-23 08:57] LABS: ALK PHOS 30.0 U/L (40-150)
[2025-03-23 08:59] LABS: SGOT/AST 20.0 U/L (5-34); SGPT/ALT 14.0 U/L (0-55)
[2025-03-23 09:00] LABS: CREATININE 0.79 mg/dL (0.55-1.3)
[2025-03-23] MEDS: ACETAMINOPHEN 1000 MG/100 ML BAG IVPB PRN (19:50)
[2025-03-24] MEDS: TIGECYCLINE 50 MG in DEXTROSE 5%-WATER - 100 ML IVPB ONE (17:06)
[2025-03-25] MEDS: TIGECYCLINE 50 MG in DEXTROSE 5%-WATER - 100 ML IVPB SCH (05:05)
[2025-03-25] MEDS: ACETAMINOPHEN 500 MG TABLET (FP) PO ONE (10:34)
[2025-03-25 11:57] VITALS: BP 96/60; PULSE 60; RESP 16; TEMP 97.6
== END 2025-03-25 11:55 | disposition home or self-care (01) ==
LOC: JER 16:41 → INTOOBSV 18:57 → JERBED 18:57 → UNDOADMOB 18:57 → JERBED 19:25 → J5S 20:18
PROVIDERS: ADMIT Hospitalist; ATTEND Internal Medicine
PROC: 3E033NZ Introduction of Analgesics, Hypnotics, Sedatives into Peripheral Vein, Percutaneous Approach (ICD-10-PCS; principal; 2025-03-17)
PROC: 3E0333Z Introduction of Anti-inflammatory into Peripheral Vein, Percutaneous Approach (ICD-10-PCS; 2025-03-17)
PROC: 3E03329 Introduction of Other Anti-infective into Peripheral Vein, Percutaneous Approach (ICD-10-PCS; 2025-03-17)
PROC: 3E0337Z Introduction of Electrolytic and Water Balance Substance into Peripheral Vein, Percutaneous Approach (ICD-10-PCS; 2025-03-17)
PROC: 02H633Z Insertion of Infusion Device into Right Atrium, Percutaneous Approach (ICD-10-PCS; 2025-03-17)
DX: N39.0 Urinary tract infection, site not specified (principal); G40.909 Epilepsy, unspecified, not intractable, without status epilepticus; Z90.49 Acquired absence of other specified parts of digestive tract; C90.00 Multiple myeloma not having achieved remission; Z98.84 Bariatric surgery status; Z87.440 Personal history of urinary (tract) infections; F17.290 Nicotine dependence, other tobacco product, uncomplicated; Z88.8 Allergy status to other drugs, medicaments and biological substances
CPT/HCPCS: 36415; 36569; 71045-TC-FY; 76775-TC; 80048; 80053; 81003; 83735; 84100; 84702; 85025; 85027; 87086; 87324; 87449; 93005; 93010; 99285-25; G0378; J3243